=== PATIENT | male | born 1940 | race Two or more races ===

== ENCOUNTER 2023-04-27 10:13 | Emergency (ER) | payer MEDICARE, BC ==
[~2023-04-27] VITALS: Ht 167.6 cm; Wt 80.0 kg
[2023-04-27] MEDS ORDERED: SODIUM CHLORIDE 0.9% 1,000 ML IVB ONE (10:30)
[2023-04-27] MEDS ORDERED: MORPHINE SULFATE 4 MG/ML SYR/VIAL IV ONE ×2 (10:30→16:30)
[2023-04-27] MEDS ORDERED: ONDANSETRON HCL 4 MG/2 ML VIAL IV ONE ×2 (10:30→16:30)
[2023-04-27 11:00] VITALS: PULSE 74; RESP 14; O2SAT 95
[2023-04-27 11:10] LABS: Basophils # (auto) 0 10 ^3/uL (0-0.2); Eosinophils # (auto) 0.4 10 ^3/uL (0-0.8); Hemoglobin 12.8 g/dL (13.5-17.5); Mean Corpuscular Hemoglobin 25.1 pg (28.0-32.0); White Blood Cell 9.3 10^3/uL (4.4-10.8)
[2023-04-27 11:11] LABS: Basophils % (auto) 0.3 % (0.0-2.0); Eosinophils % (auto) 4.6 % (0.0-7.0); Hematocrit 39.1 % (41.0-53.0); Lymphocytes # (auto) 1.2 10 ^3/uL (0.4-5.4); Lymphocytes % (auto) 12.8 % (10.0-50.0); Mean Corpuscular Hgb Conc. 32.7 g/dL (32.0-36.0); Mean Corpuscular Volume 76.6 fL (80.0-100.0); Monocytes % (auto) 10.4 % (0.0-12.0); Neutrophils # (auto) 6.7 10 ^3/uL (1.6-8.6); Neutrophils % (auto) 71.9 % (37.0-80.0); Red Blood Cells 5.11 10^6/uL (4.5-5.90); Red Cell Distribution Width 18.5 % (11.8-14.3)
[2023-04-27 11:27] LABS: Alanine Aminotransferase 45 U/L (7-40); Albumin 4.3 g/dL (3.2-4.8); Alkaline Phosphatase 121 U/L (46-116); Anion Gap 3 (5-15); Aspartate Aminotransferase 90 U/L (13-40); BUN/Creatinine Ratio 11.6 (10.0-20.0); Blood Urea Nitrogen 14 mg/dL (9-23); Calcium 9.6 mg/dL (8.7-10.4); Carbon Dioxide 30 mmol/L (20-30); Chloride 103 mmol/L (98-107); Glucose 98 mg/dL (74-106); Lipase 37 U/L (12-53); Potassium 4.3 mmol/L (3.5-5.1); Sodium 136 mmol/L (136-145)
[2023-04-27 11:28] LABS: Bilirubin, Total 0.8 mg/dL (0.2-1.0); Total Protein 7.2 g/dL (5.7-8.2)
[2023-04-27] MEDS ORDERED: IOHEXOL 300 MG/ML 100ML BOTTLE IJ ONE (12:33)
[2023-04-27 15:21] LABS: Urine Bacteria NONE SEEN /hpf (None Seen); Urine Blood Negative /uL (Negative); Urine Clarity Clear (Clear); Urine Color Yellow (Yellow); Urine Protein, UAD Negative (Negative); Urine Urobilinogen Normal (Negative); Urine WBC 1 /hpf (0 - 3); Urine pH 7.5 (5.0-8.0)
[2023-04-27 19:30] VITALS: PULSE 78; RESP 16; O2SAT 96
[2023-04-28 00:32] VITALS: BP 128/69; PULSE 84; RESP 18; O2SAT 94
== END 2023-04-28 00:59 | disposition short-term general hospital (02) ==
LOC: ER 10:13 → EDBD 10:13 → ER 04-28 00:59
DX: K80.50 Calculus of bile duct without cholangitis or cholecystitis without obstruction (principal); K80.20 Calculus of gallbladder without cholecystitis without obstruction; Z85.9 Personal history of malignant neoplasm, unspecified; Z98.890 Other specified postprocedural states; Z88.8 Allergy status to other drugs, medicaments and biological substances
CPT/HCPCS: 36415; 74177; 76705; 80053; 81001; 83605; 83690; 85025; 93005; 96361; 96374; 96375; 96376; 99285; J2270; J2405; J7030; Q9967

== ENCOUNTER 2024-12-23 23:46 | Inpatient (IN) | payer MEDICARE, BC ==
[~2024-12-23] VITALS: Ht 167.6 cm; Wt 67.1 kg
[2024-12-24 00:09] LABS: Nucleated Red Blood Cells % 0.0 %
[2024-12-24 00:11] LABS: Hematocrit 38.3 % (41.0-53.0); Hemoglobin 12.7 g/dL (13.5-17.5); Mean Corpuscular Hemoglobin 27.0 pg (28.0-32.0); Mean Corpuscular Volume 81.6 fL (80.0-100.0)
[2024-12-24 00:12] LABS: Chloride 104 mmol/L (98-107); Potassium 3.6 mmol/L (3.5-5.1); Sodium 139 mmol/L (136-145)
[2024-12-24 00:13] LABS: Anion Gap 10 (5-15); Carbon Dioxide 25 mmol/L (20-31)
[2024-12-24 00:14] LABS: Calcium 8.9 mg/dL (8.7-10.4)
[2024-12-24 00:19] LABS: BUN/Creatinine Ratio 15.7 (10.0-20.0); Blood Urea Nitrogen 14 mg/dL (9-23)
[2024-12-24 00:20] LABS: Glucose 119 mg/dL (74-106)
--- NOTE | 2024-12-24 00:50 | ED.PDOC ---
History of Present Illness HPI Comments 84 y/o M is BIBA for c/o left sided back pain and decreased output from his colostomy bag for the past 5x days. Vitals stable and within normal limits. No recent trauma or injuries endorsed. No further acute associated symptoms reported. 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 Past Medical History PAST MEDICAL HISTORY: Cancer (intestinal ) Surgical History: CABG, Cholecystectomy, Pacemaker Surgical History (Other): colostomy in place Family History Family History: Reviewed,noncontributory to illness, No family hx of Cancer, No family hx of DM, No family hx of Heart lee, No family hx of HTN, No family hx ofKidney lee, No family hx of Liver lee, No family hx of Lung lee, No family hx of Stroke Social History Smoker: Non-Smoker Alcohol: Denies ETOH Use Drugs: Denies Drug Use Lives In: Home All Other Systems: Reviewed and Negative (Comprehensive systems review obtained and negative except for what is stated in the HPI.) Physical Exam General Appearance: No Apparent Distress, Normal HEENT: Normal ENT Inspection, Pharynx Normal, TMs Normal Neck: Full Range of Motion, Non-Tender, Normal, Normal Inspection Respiratory: Chest Non-Tender, Lungs Clear, No Accessory Muscle Use, No R espiratory Distress, Normal Breath Sounds Cardiovascular: No Edema, No JVD, No Murmur, No Gallop, Normal Peripheral Pulses, Regular Rate/Rhythm Breast Exam: Deferred Gastrointestinal: No Organomegaly, Non Tender, No Pulsatile Mass, Normal Bowel Sounds, Soft, Other (colostomy in place ) Genitalia: Deferred Pelvic: Deferred Rectal: Deferred Extremities: No calf tenderness, Normal capillary refill, Normal inspection, Normal range of motion, Non-tender, No pedal edema Musculoskeletal : Location: Left Extremity Location: Back Apperance: Normal, Tenderness Neurologic: Alert, telecom assistant II-XII nml as Tested, No Motor Deficits, Normal Affect, Normal Mood, No Sensory Deficits Cerebellar Function: Normal Reflexes: Normal Skin: Dry, Normal Color, Warm Lymphatic: No Adenopathy Was a procedure done? Was a procedure done?: No EKG EKG : Pulse Rate (adult): 94 [place]: Normal Cardiac Rhythm: Afib Block: None Hypertrophy: None ST: Normal Differential Dx Considerations may include: chronic back pain syndrome, musculoskeletal pain, strain, sciatica, bowel obstruction, among others X-Ray, Labs, Meds, VS Vital Signs Date Time Temp Pulse Resp B/P (MAP) Pulse Ox O2 Delivery O2 Flow Rate FiO2 12/24/24 02:59 90 12/24/24 01:14 100 16 99 Room Air* 0 21 12/24/24 01:10 94 12/24/24 00:54 92 12/24/24 00:47 98.1 100 16 124/78 (93) 99 98.1 12/24/24 00:00 98.1 100 16 124/78 (93) 99 98.1 12/24/24 00:00 94 Lab Test 12/24/24 02:43 12/24/24 01:40 12/24/24 00:45 12/23/24 23:57 Range/Units Troponin I High Sensitivity Pending 6 5 </=54 ng/L Urine Color Yellow Yellow Urine Clarity Clear Clear Urine pH 6.0 5.0-9.0 Urine Specific [place] 1.026 1.001-1.035 Urine Protein Trace H Negative Urine Ketones Negative Negative Urine Blood Negative Negative /uL Urine Nitrite Negative Negative Urine Bilirubin Negative Negative Urine Urobilinogen 3 H Negative mg/dL Urine Leukocyte Esterase Negative Negative /uL Urine RBC 2 0 - 3 /hpf Urine Microscopic WBC 6 H 0-3 /HPF Urine Squamous Epithelial Cells Few <5 /hpf Urine Bacteria None seen None Seen /hpf Urine Glucose Normal Normal mg/dL White Blood Count 9.0 4.4-10.8 10^3/uL Red Blood Count 4.70 4.5-5.90 10^6/uL Hemoglobin 12.7 L 13.5-17.5 g/dL Hematocrit 38.3 L 41.0-53.0 % Mean Corpuscular Volume 81.6 80.0-100.0 fL Mean Corpuscular Hemoglobin 27.0 L 28.0-32.0 pg Mean Corpuscular Hemoglobin Concent 33.1 32.0-36.0 g/dL Red Cell Distribution Width 15.4 H 11.8-14.3 % Platelet Count 294 140-450 10^3/uL Mean Platelet Volume 6.9 6.9-10.8 fL Neutrophils (%) (Auto) 79.0 37.0-80.0 % Lymphocytes (%) (Auto) 8.4 L 10.0-50.0 % Monocytes (%) (Auto) 9.5 0.0-12.0 % Eosinophils (%) (Auto) 2.6 0.0-7.0 % Basophils (%) (Auto) 0.5 0.0-2.0 % Neutrophils # (Auto) 7.1 1.6-8.6 10 ^3/uL Lymphocytes # (Auto) 0.8 0.4-5.4 10 ^3/uL Monocytes # (Auto) 0.9 0-1.3 10 ^3/uL Eosinophils # (Auto) 0.2 0-0.8 10 ^3/uL Basophils # (Auto) 0 0-0.2 10 ^3/uL Nucleated Red Blood Cells 0.0 % Sodium Level 139 136-145 mmol/L Potassium Level 3.6 3.5-5.1 mmol/L Chloride Level 104 98-107 mmol/L Carbon Dioxide Level 25 20-31 mmol/L Anion Gap 10 5-15 Blood Urea Nitrogen 14 9-23 mg/dL Creatinine 0.89 0.700-1.30 mg/dL Glomerular Filtration Rate Calc 85 >90 mL/min BUN/Creatinine Ratio 15.7 10.0-20.0 Serum Glucose 119 H 74-106 mg/dL Calcium Level 8.9 8.7-10.4 mg/dL Time of 1ST Reevaluation: 00:10 Reevaluation 1ST: Unchanged Patient Education/Counseling: Diagnosis, Treatment Family Education/Counseling: No Family Present Additional Information Previous visits reviewed: April 27, 2023 for cholelithiasis The following tests were ordered, and results were reviewed by me: CT abdomen/pelvis w/IV contrast, EKG, troponin, UA, CBC, BMP, CXR Additional Information was gathered from interviewing the following independent historians: EMS I reviewed and agreed with the following test results read by other providers: CT abdomen/pelvis w/IV contrast I discussed treatment and results with medical personnel and: patient SEPSIS Sepsis Screen Physician Orders Chest Portable (12/23/24 23:52) Ct Ab Pel With Iv Con Only (12/23/24 23:52) Troponin-I Hs (12/24/24 02:48) Electrocardigram (12/24/24 00:08) Electrocardigram (12/24/24 01:08) Electrocardigram (12/24/24 03:08) Vital Signs Date Time Temp Pulse Resp B/P (MAP) Pulse Ox O2 Delivery O2 Flow Rate FiO2 12/24/24 02:59 90 12/24/24 01:14 100 16 99 Room Air* 0 21 12/24/24 01:10 94 12/24/24 00:54 92 12/24/24 00:47 98.1 100 16 124/78 (93) 99 98.1 12/24/24 00:00 98.1 100 16 124/78 (93) 99 98.1 12/24/24 00:00 94 Laboratory Tests Test 12/23/24 23:57 White Blood Count 9.0 10^3/uL (4.4-10.8) Departure 1 Departure Time of Disposition: 03:32 (Patient with a worsening pain. We will admit patient for further workup and expert consultation) Impression: Primary Impression: Left-sided chest pain Additional Impressions: Left flank pain History of creation of ostomy Disposition: ADMITTED INPATIENT Admit to: Med Surg Condition: Serious Critical Care Note Critical Care Time?: Yes Critical care comment: Intractable pain Authorized and Performed by: Zaynab Gallagher MD Total critical care time: Approximately 39 minutes Due to a high probability of clinically significant, life threatening deterioration, the patient required my highest level of preparedness to intervene emergently and I personally spent this critical care time directly and personally managing the patient. This critical care time included obtaining a history; examining the patient; pulse oximetry; ordering and review of studies; arranging urgent treatment with development of a management plan; evaluation of patient's response to treatment; frequent reassessment; and, discussions with other providers. This critical care time was performed to assess and manage the high probability of imminent, life-threatening deterioration that could result in multi-organ failure. It was exclusive of separately billable procedures and treating other patients and teaching time. Please see my other sections and the rest of the note for further information on patient assessment and treatment. Stability Stability form required: No Heart Score Heart Score: Heart Score Response (Comments) Value History N/A 0 EKG N/A 0 Age N/A 0 Risk Factors N/A 0 Troponin N/A 0 Total 0 I personally scribed for ZAYNAB GALLAGHER MD ([email or web address]) on 12/24/24 at 00:50. Electronically submitted by Robert Thomas ([email or web address]). I personally scribed for ZAYNAB GALLAGHER MD ([email or web address]) on 12/24/24 at 01:10. Electronically submitted by Robert Thomas ([email or web address]). I personally scribed for ZAYNAB GALLAGHER MD ([email or web address]) on 12/24/24 at 01:17. Electronically submitted by Robert Thomas ([email or web address]). ZAYNAB GALLAGHER MD Dec 24, 2024 00:50
[2024-12-24 01:14] VITALS: PULSE 100; RESP 16; O2SAT 99
[2024-12-24] MEDS: IOHEXOL 300 MG/ML 100ML BOTTLE IJ ONE (01:48)
[2024-12-24 01:55] LABS: Urine Protein, UAD TRACE (Negative)
--- NOTE | 2024-12-24 02:01 | DVH ---
CHEST RADIOGRAPH Indication: abdominal pain Technique: Single frontal view of the chest was obtained COMPARISON: None FINDINGS: The patient is moderately rotated to the left. Lines and Tubes: None. Left anterior chest wall cardiac pacing device. Lungs: The left lung is poorly evaluated secondary to clipping of the costophrenic angle and patient' s rotation. The right lung is clear. Pleura: No definite effusion. No definite pneumothorax. Cardiomediastinal contours: Cardiomegaly status post median sternotomy. Bones: Unremarkable IMPRESSION: 1. Limited exam secondary to patient positioning and clipping of the left costophrenic angle. The lef t lung is poorly evaluated. The right lung is clear. 2. Cardiomegaly.
--- NOTE | 2024-12-24 03:04 | DVH ---
Exam: CT CT AB PEL WITH IV CON ONLY History: abdominal pain, ostomy COMPARISON: CT CT AB PEL WITH IV CON ONLY on DOS: 04/27/23 Technique: Multidetector spiral CT of the abdomen and pelvis was performed from lung bases to pubic s ymphysis. Intravenous contrast was administered during this examination. Portal venous imaging was o btained. Axial, coronal and sagittal multiplanar reformats were performed by the technologist on a [employer] workstation. Radiation Dose : 1. Abdomen/Pelvis: CTDIvol 11.52mGy, DLP 590.84 mGy*cm. CONTRAST: Type of contrast: Omniscan 300 Contrast injected: 80 ml Findings: Lung Bases: No acute or significant lung base finding. 4 mm odule posterior right lung base (series 2 , image 9). Normal heart size. No pleural or pericardial effusion. Proximal aortic stent and cardiac pacing leads status post median sternotomy. Liver: The liver is normal in size. No focal lesions. Normal hepatic vascular enhancement. Gallbladder and Biliary Tree: Cholelithiasis. Spleen: Unremarkable Pancreas: The pancreas is normal in appearance without focal lesions or abnormal enhancement. Adrenal Glands: Unremarkable Kidneys: No hydronephrosis. Bladder: Unremarkable Bowel: Small hiatal hernia. The stomach is grossly normal in appearance. Retained colonic stool. Smal l bowel and colon are otherwise normal in caliber and distribution. Left lower quadrant colostomy. Lo w rectal bowel sutures. The appendix is normal. Ascites: Absent Lymphadenopathy: No mesenteric, retroperitoneal or periportal lymphadenopathy. Abdominal Wall and Mesentery: Unremarkable. Vasculature: The visualized abdominal aorta is moderately tortuous in its course and otherwise normal in size and caliber. Atherosclerotic vascular calcifications. Abdominal and pelvic vessels demonstr ate normal enhancement. Pelvic Organs: Unremarkable Musculoskeletal: No aggressive focal bony lesions, acute fractures or dislocation. IMPRESSION: 1. No acute abdominal or pelvic finding. 2. Right posterior basilar pulmonary nodule. 3. Cholelithiasis. 4. Postsurgical change status post hemicolectomy with left lower quadrant colostomy. Radiation optimization: All CT scans at this facility use at least one of these dose optimization david hniques: automated exposure control mA and/or kV adjustment per patient size (includes targeted exam s where dose is matched to clinical indication) or iterative reconstruction.
[2024-12-24] MEDS: SODIUM CHLORIDE 0.9% 1,000 ML IV ONE (03:45)
[2024-12-24] MEDS: MORPHINE SULFATE 4 MG/ML SYR/VIAL IV ONE (04:10)
[2024-12-24] MEDS: ONDANSETRON HCL 4 MG/2 ML VIAL IV ONE (04:10)
--- NOTE | 2024-12-24 06:14 | ECG ---
[facility] Test Date: 2024-12-24 Test Time: 00:00:58 Pat Name: SHITAL LYNN Department: ED Room: 0296 Gender: M [employer]sc[employer] Director: edson : 1940 Requested By: ZAYNAB ELDRIDGE Order Number: [id number] [place] MD: Cm Alcantara Measurements Intervals [place] Rate: 94 P: 0 CO: 0 QRS: 35 QRSD: 162 T: 254 QT: 396 QTc: 496 Interpretive Statements Atrial fibrillation IVCD, consider atypical RBBB LVH with secondary repolarization abnormality ST depr, consider ischemia, inferior leads Borderline prolonged QT interval Baseline wander in lead(s) V6 Electronically Signed On 12-26-2024 9:51:57 PDT by Cm Alcantara Please click the below link to view image of tracing.
--- NOTE | 2024-12-24 06:15 | ECG ---
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
[2024-12-24] MEDS ORDERED: ACETAMINOPHEN 325 MG TAB PO PRN (07:00)
[2024-12-24] MEDS ORDERED: NITROGLYCERIN 0.4 MG SL TAB SL PRN (07:00)
[2024-12-24] MEDS ORDERED: HYDROcodone-ACET 5/325MG TAB PO PRN (07:00)
[2024-12-24] MEDS ORDERED: ATOR20TA50 PO (07:30)
[2024-12-24] MEDS ORDERED: METO-289 PO (07:30)
[2024-12-24] MEDS ORDERED: [UNRECOGNIZED DRUG - CODE] PO (07:30)
[2024-12-24] MEDS ORDERED: APIX5TAB PO (07:30)
[2024-12-24] MEDS ORDERED: AMLO1TAB23 PO (07:30)
--- NOTE | 2024-12-24 07:32 | DVHHP2 ---
History of Present Illness Reason for Visit: Back pain History of Present Illness Aníbal Saeed is an 84-year-old male with past medical history of hypertension, colon cancer, hemicolectomy status post colostomy, arthritis, pacemaker, stents x7, left nephrectomy in 2010, CABG, and cholecystectomy who presents to the ED with back pain x2 days. Patient states he is hard of hearing and does not currently have his hearing aids on. Patient states that he currently lives up here in [place] alone but does go down to [place] to visit his from time to time to help her. Patient reports that he walks and runs. He denies any recent trauma or injury, recent sick contacts, recent ingestion of spoiled food, fever, chills, lightheadedness, weakness, dizziness, abdominal pain, nausea, vomiting, diarrhea, chest pain, or shortness for breath. Patient states that he is aware of a pulmonary nodule in his right lung. He states that he got tested late last year in 2023 and results came back negative per his primary. Cardiovascular: HTN Past Medical History Arthritis Colon cancer Past Surgical History: Other (Left nephrectomy, colostomy status post hemicolectomy, pacemaker, stents x7, and CABG) Family History: DM, Hypertension, Other (Mom with diabetes and hypertension. Dad with hypertension.) Smoke: No ALCOHOL: none Drugs: None Lives: Alone Domestic Violence: Neg Review of Systems Musculoskeletal: back pain Allergies: Coded Allergies: Acetaminophen (Verified Allergy, Unknown, 04/27/23) Exam Vital Signs Vital Signs Date Time Temp Pulse Resp B/P (MAP) Pulse Ox O2 Delivery O2 Flow Rate FiO2 12/24/24 05:00 92 21 145/75 (98) 96 12/24/24 01:14 Room Air* 0 21 12/24/24 00:47 98.1 98.1 General Appearance: Alert, Oriented X3, Cooperative, No acute distress HEENT: Atraumatic, PERRLA, EOMI, Mucous membr. moist/pink Respiratory: Clear to auscultation, Normal air movement Cardiovascular: Regular rate, Normal S1, Normal S2 Abdominal: Normal bowel sounds, Soft Extremities: No cyanosis, Normal pulses Neuro: Normal speech, Strength at 5/5 X4 ext, Normal tone, Sensation intact Psych/Mental Status: Mental status NL, Mood NL Labs/Xrays Labs Test 12/24/24 02:43 12/24/24 01:40 12/23/24 23:57 Range/Units Troponin I High Sensitivity 5 </=54 ng/L Urine Color Yellow Yellow Urine Clarity Clear Clear Urine pH 6.0 5.0-9.0 Urine Specific [place] 1.026 1.001-1.035 Urine Protein Trace H Negative Urine Ketones Negative Negative Urine Blood Negative Negative /uL Urine Nitrite Negative Negative Urine Bilirubin Negative Negative Urine Urobilinogen 3 H Negative mg/dL Urine Leukocyte Esterase Negative Negative /uL Urine RBC 2 0 - 3 /hpf Urine Microscopic WBC 6 H 0-3 /HPF Urine Squamous Epithelial Cells Few <5 /hpf Urine Bacteria None seen None Seen /hpf Urine Glucose Normal Normal mg/dL White Blood Count 9.0 4.4-10.8 10^3/uL Red Blood Count 4.70 4.5-5.90 10^6/uL Hemoglobin 12.7 L 13.5-17.5 g/dL Hematocrit 38.3 L 41.0-53.0 % Mean Corpuscular Volume 81.6 80.0-100.0 fL Mean Corpuscular Hemoglobin 27.0 L 28.0-32.0 pg Mean Corpuscular Hemoglobin Concent 33.1 32.0-36.0 g/dL Red Cell Distribution Width 15.4 H 11.8-14.3 % Platelet Count 294 140-450 10^3/uL Mean Platelet Volume 6.9 6.9-10.8 fL Neutrophils (%) (Auto) 79.0 37.0-80.0 % Lymphocytes (%) (Auto) 8.4 L 10.0-50.0 % Monocytes (%) (Auto) 9.5 0.0-12.0 % Eosinophils (%) (Auto) 2.6 0.0-7.0 % Basophils (%) (Auto) 0.5 0.0-2.0 % Neutrophils # (Auto) 7.1 1.6-8.6 10 ^3/uL Lymphocytes # (Auto) 0.8 0.4-5.4 10 ^3/uL Monocytes # (Auto) 0.9 0-1.3 10 ^3/uL Eosinophils # (Auto) 0.2 0-0.8 10 ^3/uL Basophils # (Auto) 0 0-0.2 10 ^3/uL Nucleated Red Blood Cells 0.0 % Sodium Level 139 136-145 mmol/L Potassium Level 3.6 3.5-5.1 mmol/L Chloride Level 104 98-107 mmol/L Carbon Dioxide Level 25 20-31 mmol/L Anion Gap 10 5-15 Blood Urea Nitrogen 14 9-23 mg/dL Creatinine 0.89 0.700-1.30 mg/dL Glomerular Filtration Rate Calc 85 >90 mL/min BUN/Creatinine Ratio 15.7 10.0-20.0 Serum Glucose 119 H 74-106 mg/dL Calcium Level 8.9 8.7-10.4 mg/dL INDICATION: Low back pain COMPARISON: None TECHNIQUE: 3 views of the lumbar spine were obtained. FINDINGS: The lumbar vertebral alignment is normal. Multilevel intervertebral disc space narrowing. Facet arthropathy at L4-L5 and L5-S1. Anterior wedge compression deformities of T12 and L1 of indeterminate age. There is lucency in the anterior and inferior aspect of the S1 vertebral body. The paravertebral soft tissues are grossly unremarkable. Excreted contrast in the urinary bladder. IMPRESSION: 1. Lucency in the anterior and inferior aspect of the S1 vertebral body. Fracture is not excluded. 2. Age-indeterminate T12 and L1 compression deformities. 3. Multilevel lumbar spondylosis. Assessment/Plan Assessment/Plan Assessment Intractable back pain rule out fracture T12 and a L1 compression deformities Multilevel lumbar spondylosis Right posterior basilar pulmonary nodule Cardiomegaly History of hypertension Hx of colon cancer Hx of hemicolectomy status post colostomy Hx of arthritis Hx of pacemaker Hx of stents x7 Hx of left nephrectomy in 2010 Hx of CABG Hx of cholecystectomy Plan Admit to med surge Antiemetics Pain management UA NS 1 L given ED EKG Troponin negative x3 CT abdomen and pelvis Chest x-ray X-ray lumbar spine Possible CT myelogram unable to get MR L/S due to PM - need to check compatibility Diet DVT prophylaxis-patient on Eliquis PUD prophylaxis-PPIs Discussed plan of care with patient and nurse Spinal consult Advanced care planning discussion regarding length of stay and consult required Preventive counseling discussed with patient on physical activity, regular checkups, vaccines, and healthy eating habits Plan discussed with: Patient My Orders Orders - MAXIMILIAN JEAN BAPTISTE TECHNICAL STAFF ASSISTANT Procedure Category Date Status Time Lumbar Spine 3 View XY 12/24/24 Logged 06:57 Admit ADMIT 12/24/24 Transmitted 06:57 Allergies KENDAL 12/24/24 Transmitted 06:57 Code Status CODE 12/24/24 Transmitted 06:57 Hydrocodone-Acet PHA 12/24/24 Transmitted 5/325mg Tab ([place] 07:00 Ondansetron Hcl PHA 12/24/24 Transmitted (Zofran) 07:00 Enoxaparin Sodium PHA 12/24/24 Transmitted (Lovenox) 10:00 Complete Blood Count LAB 12/25/24 Verified 04:00 Comprehensive LAB 12/25/24 Verified Metabolic Panel 04:00 Cardiac DIET 12/24/24 Transmitted Diet-2gna,Lofat,Lochol Breakfast Acetaminophen Tablet PHA 12/24/24 Transmitted (Tylenol Tablet) 07:00 Nitroglycerin PHA 12/24/24 Transmitted Sublingual (Ntrostat 07:00 Morphine Sulfate PHA 12/24/24 Transmitted Injection 07:00 Stat Ekg For Chest [facility] 12/24/24 Transmitted Pain 06:57 Notify Md Of Changes [facility] 12/24/24 Transmitted From Base 06:57 Outreach Representative For [facility] 12/24/24 Transmitted 24 Hours 06:57 Emergency Dysrhythmia [facility] 12/24/24 Transmitted Protocol 06:57 Rhythm Strips Once [facility] 12/24/24 Transmitted Every Shift 06:57 Oxygen By Nasal RT 12/24/24 Transmitted Cannula 06:57 Apixaban (Eliquis) [facility] 12/24/24 Verified 10:00 Atorvastatin (Lipitor) PHA 12/24/24 Verified 10:00 Metoprolol Xl PHA 12/24/24 Verified Succinate (Toprol Xl) 10:00 (Nf) Amlodipine PHA 12/24/24 Verified Besylate 10:00 (Nf) Venlafaxine PHA 12/24/24 Verified Hydrochloride 10:00 Date of Service: Dec 24, 2024 Billing Provider: MAXIMILIAN JEAN BAPTISTE Common Visit Codes: 22363-WPMUUHQ INP/OBS CARE (HIGH) Secondary Visit Codes: 63095-[id number] COUNSELING IND, [id number]-[id number] CARE PLAN 30 MINUTES MAXIMILIAN JEAN BAPTISTE Dec 24, 2024 07:32
[2024-12-24 08:00] VITALS: PULSE 82; RESP 20; O2SAT 97
--- NOTE | 2024-12-24 08:23 | DVH ---
INDICATION: Low back pain COMPARISON: None TECHNIQUE: 3 views of the lumbar spine were obtained. FINDINGS: The lumbar vertebral alignment is normal. Multilevel intervertebral disc space narrowing. Facet arthropathy at L4-L5 and L5-S1. Anterior wedge compression deformities of T12 and L1 of indeterminate age. There is lucency in the an terior and inferior aspect of the S1 vertebral body. The paravertebral soft tissues are grossly unremarkable. Excreted contrast in the urinary bladder. IMPRESSION: 1. Lucency in the anterior and inferior aspect of the S1 vertebral body. Fracture is not excluded. 2. Age-indeterminate T12 and L1 compression deformities. 3. Multilevel lumbar spondylosis.
--- NOTE | 2024-12-24 08:29 | ECG ---
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
--- NOTE | 2024-12-24 09:56 | DVHINCON2 ---
Consultation - Spinal Surgery Date Seen: Dec 24, 2024 Referring Physician Referring Physician Attending Doctor: Jessica Love [facility] Reason for Consultation Reason for Visit: Back pain History of Present Illness History of Present Illness History of Present Illness Aníbal Saeed is an 84-year-old male with past medical history of hypertension, colon cancer, hemicolectomy status post colostomy, arthritis, pacemaker, stents x7, left nephrectomy in 2010, CABG, and cholecystectomy who presents to the ED with back pain x2 days. Patient states he is hard of hearing and does not curr ently have his hearing aids on. Patient states that he currently lives up here in [place] alone but does go down to [place] to visit his from time to time to help her. Patient reports that he walks and runs. He denies any recent trauma or injury, recent sick contacts, recent ingestion of spoiled food, fever, chills, lightheadedness, weakness, dizziness, abdominal pain, nausea, vomiting, diarrhea, chest pain, or shortness for breath. Patient states that he is aware of a pulmonary nodule in his right lung. He states that he got tested late last year in 2023 and results came back negative per his primary. Past Medical/Surgical History Past Medical/Surgical History Cardiovascular: HTN Past Medical History Arthritis Colon cancer Past Surgical History: Other (Left nephrectomy, colostomy status post hemicolectomy, pacemaker, stents x7, and CABG) Family and Social History Family and Social History Family History: DM, Hypertension, Other (Mom with diabetes and hypertension. Dad with hypertension.) Smoke: No ALCOHOL: none Drugs: None Lives: Alone Domestic Violence: Neg Allergies and medications Allergies: Coded Allergies: Acetaminophen (Verified Allergy, Unknown, 04/27/23) Home Meds Reported Medications Atorvastatin Calcium (ATORVASTATIN CALCIUM) 20 Mg Tab, 1 TAB PO DAILY 12/24/24 Apixaban Base (ELIQUIS) 5 Mg Tab, 1 TAB PO BID 12/24/24 Venlafaxine Hydrochloride (Venlafaxine Hydrochloride) 75 Mg Tab, 1 TAB PO DAILY 12/24/24 Metoprolol Succinate (Metoprolol Succinate Er) 50 Mg Tab, 1 TAB PO DAILY 12/24/24 Amlodipine Besylate (Amlodipine Besylate) 10 Mg Tab, 1 TAB PO DAILY 12/24/24 Review of systems Review of Systems: HEENT:Normal, CVS:Abnormal, :Abnormal Examination Vital signs Imaging INDICATION: Low back pain COMPARISON: None TECHNIQUE: 3 views of the lumbar spine were obtained. FINDINGS: The lumbar vertebral alignment is normal. Multilevel intervertebral disc space narrowing. Facet arthropathy at L4-L5 and L5-S1. Anterior wedge compression deformities of T12 and L1 of indeterminate age. There is lucency in the anterior and inferior aspect of the S1 vertebral body. The paravertebral soft tissues are grossly unremarkable. Excreted contrast in the urinary bladder. IMPRESSION: 1. Lucency in the anterior and inferior aspect of the S1 vertebral body. Fracture is not excluded. 2. Age-indeterminate T12 and L1 compression deformities. 3. Multilevel lumbar spondylosis. Vital Signs Date Time Temp Pulse Resp B/P (MAP) Pulse Ox O2 Delivery O2 Flow Rate FiO2 12/24/24 08:00 82 20 97 Room Air* 0 21 12/24/24 08:00 98.2 133/70 (91) 98.2 Medications Current Medications Medications (Trade) Dose Ordered Sig/Enrique Route PRN Reason Start Time Stop Time Status Last Admin Acetaminophen/ Hydrocodone Bitart ([place] 5/325MG Tab) 1 tab Q4HP PRN PO MODERATE PAIN (4-6 PAIN SCALE) 12/24/24 07:00 Hold Ondansetron HCl (Zofran) 4 mg Q4HP PRN IV NAUSEA / VOMITING 12/24/24 07:00 Enoxaparin Sodium (Lovenox) 40 mg DAILY SC 12/24/24 10:00 12/24/24 08:00 DC Acetaminophen (Tylenol Tablet) 650 mg Q6HP PRN PO PAIN SCALE 1-3 OR TEMP>100.4 12/24/24 07:00 Nitroglycerin (Ntrostat Sublingual) 0.4 mg Q5MINP PRN SL FOR CHEST PAIN 12/24/24 07:00 Morphine Sulfate 2 mg Q30M PRN IV FOR CHEST PAIN 12/24/24 07:00 Apixaban (Eliquis) 5 mg BID PO 12/24/24 10:00 Atorvastatin Calcium (Lipitor) 20 mg DAILY PO 12/24/24 10:00 Metoprolol Succinate (Toprol Xl) 50 mg DAILY PO 12/24/24 10:00 Amlodipine Besylate (Norvasc Tablet) 10 mg DAILY PO 12/24/24 10:00 Venlafaxine HCl (Effexor) 75 mg DAILY PO 12/24/24 10:00 Laboratory Labs Test 12/24/24 02:43 12/24/24 01:40 12/23/24 23:57 Range/Units Troponin I High Sensitivity 5 </=54 ng/L Urine Color Yellow Yellow Urine Clarity Clear Clear Urine pH 6.0 5.0-9.0 Urine Specific [place] 1.026 1.001-1.035 Urine Protein Trace H Negative Urine Ketones Negative Negative Urine Blood Negative Negative /uL Urine Nitrite Negative Negative Urine Bilirubin Negative Negative Urine Urobilinogen 3 H Negative mg/dL Urine Leukocyte Esterase Negative Negative /uL Urine RBC 2 0 - 3 /hpf Urine Microscopic WBC 6 H 0-3 /HPF Urine Squamous Epithelial Cells Few <5 /hpf Urine Bacteria None seen None Seen /hpf Urine Glucose Normal Normal mg/dL White Blood Count 9.0 4.4-10.8 10^3/uL Red Blood Count 4.70 4.5-5.90 10^6/uL Hemoglobin 12.7 L 13.5-17.5 g/dL Hematocrit 38.3 L 41.0-53.0 % Mean Corpuscular Volume 81.6 80.0-100.0 fL Mean Corpuscular Hemoglobin 27.0 L 28.0-32.0 pg Mean Corpuscular Hemoglobin Concent 33.1 32.0-36.0 g/dL Red Cell Distribution Width 15.4 H 11.8-14.3 % Platelet Count 294 140-450 10^3/uL Mean Platelet Volume 6.9 6.9-10.8 fL Neutrophils (%) (Auto) 79.0 37.0-80.0 % Lymphocytes (%) (Auto) 8.4 L 10.0-50.0 % Monocytes (%) (Auto) 9.5 0.0-12.0 % Eosinophils (%) (Auto) 2.6 0.0-7.0 % Basophils (%) (Auto) 0.5 0.0-2.0 % Neutrophils # (Auto) 7.1 1.6-8.6 10 ^3/uL Lymphocytes # (Auto) 0.8 0.4-5.4 10 ^3/uL Monocytes # (Auto) 0.9 0-1.3 10 ^3/uL Eosinophils # (Auto) 0.2 0-0.8 10 ^3/uL Basophils # (Auto) 0 0-0.2 10 ^3/uL Nucleated Red Blood Cells 0.0 % Sodium Level 139 136-145 mmol/L Potassium Level 3.6 3.5-5.1 mmol/L Chloride Level 104 98-107 mmol/L Carbon Dioxide Level 25 20-31 mmol/L Anion Gap 10 5-15 Blood Urea Nitrogen 14 9-23 mg/dL Creatinine 0.89 0.700-1.30 mg/dL Glomerular Filtration Rate Calc 85 >90 mL/min BUN/Creatinine Ratio 15.7 10.0-20.0 Serum Glucose 119 H 74-106 mg/dL Calcium Level 8.9 8.7-10.4 mg/dL Examination: GENERAL:Normal, HEENT:Normal, NECK:Normal, LUNGS:Normal, CVS:No rmal, ABDOMEN:Normal, MSK:Normal (4/5 to all extremities age-appropriate range of motion), SKIN:Normal, NEURO:Abnormal (Left low back pain, patient states that he had well controlled pain when he was taking his tramadol however his insurance no longer covers it. 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 Fracture is not excluded. Age-indeterminate T12 and L1 compression deformities. Multilevel lumbar spondylosis. Patient was fully functional when he had a prescription of tramadol however his insurance no longer pace for per the patient Rim Technician is attempting to find a substitute however has been unsuccessful at this time Further care and management per admitting/ED team's discretion Patient is not a surgical candidate at this time due to his poor bone quality Recommend a trial of Flexeril 10 mg q 8 hours p.o. for muscle spasms Once pain is under control there is no barriers to a safe discharge PT evaluate patient for recommendations treatment and discharge Call with questions Elsa Mckeon [facility] Orthopaedic Spine Surgery nurse practitioner For Dr Frank Anaya Patient was examined, chart reviewed, labs evaluated, and diagnostic studies and findings analyzed. Case was discussed with Dr. Albert Anaya who formulated the plan of care. This medical document was created using an electronic medical record system with [employer] dictation system. Although this document has been carefully reviewed, there might still be some phonetic and typographical errors. These areas are purely typographical due to imperfections of the software programs, and do not reflect any compromise in the patient's medical care. Plan discussed with Plan discussed with: Patient, Other (Jessica Lovep) JESSICA MCKEON NP Dec 24, 2024 09:56
[2024-12-24] MEDS ORDERED: ENOXAPARIN SOD 40 MG/0.4 ML SYRINGE SC SCH (10:00)
[2024-12-24] MEDS: ONDANSETRON HCL 4 MG/2 ML VIAL IV PRN (10:02)
[2024-12-24] MEDS: MORPHINE SULFATE INJ 2 MG/ml SYRG IV PRN (10:04)
[2024-12-24] MEDS: APIXABAN 5 MG TAB PO SCH (10:09)
[2024-12-24] MEDS: ATORVASTATIN 20 MG TAB PO SCH (10:10)
[2024-12-24] MEDS: METOPROLOL SUCCINATE XL 50 MG TAB PO SCH (10:10)
[2024-12-24] MEDS: VENLAFAXINE HCL 37.5MG TABLET PO SCH (10:12)
[2024-12-24] MEDS: CYCLOBENZAPRINE HCL 10 MG TAB PO SCH (14:00)
[2024-12-24 15:30] VITALS: BP 123/62; PULSE 81; RESP 16; TEMP 97.8; O2SAT 98
[2024-12-24 15:32] VITALS: BP 129/64; PULSE 78; RESP 18; TEMP 97.6; O2SAT 100
[2024-12-24 16:50] VITALS: BP 126/64; PULSE 78; RESP 16; TEMP 97.6; O2SAT 100
[2024-12-24 21:00] VITALS: BP 143/74; PULSE 78; RESP 15; TEMP 97.9; O2SAT 98
[2024-12-25 01:00] VITALS: BP 147/77; PULSE 86; RESP 15; TEMP 97.9; O2SAT 99
[2024-12-25 05:00] VITALS: BP 142/75; PULSE 79; RESP 15; TEMP 98.2; O2SAT 96
[2024-12-25 07:10] LABS: Hematocrit 38.9 % (41.0-53.0); Hemoglobin 12.9 g/dL (13.5-17.5); Mean Corpuscular Hemoglobin 27.1 pg (28.0-32.0); Mean Corpuscular Volume 82.0 fL (80.0-100.0); Nucleated Red Blood Cells % 0.0 %
[2024-12-25 07:22] LABS: Alanine Aminotransferase 10 U/L (7-40); Albumin 4.0 g/dL (3.2-4.8); Alkaline Phosphatase 108 U/L (46-116); Anion Gap 9 (5-15); BUN/Creatinine Ratio 10.5 (10.0-20.0); Bilirubin, Total 0.4 mg/dL (0.2-1.0); Calcium 9.6 mg/dL (8.7-10.4); Carbon Dioxide 24 mmol/L (20-31); Chloride 103 mmol/L (98-107); Glucose 90 mg/dL (74-106); Potassium 4.1 mmol/L (3.5-5.1); Sodium 136 mmol/L (136-145); Total Protein 7.7 g/dL (5.7-8.2)
[2024-12-25 07:24] LABS: Blood Urea Nitrogen 8 mg/dL (9-23)
[2024-12-25 08:00] VITALS: PULSE 80; RESP 16; O2SAT 98
[2024-12-25 09:00] VITALS: BP 157/76; PULSE 80; RESP 16; TEMP 97.8; O2SAT 98
[2024-12-25 13:00] VITALS: BP 112/72; PULSE 90; RESP 18; TEMP 98; O2SAT 97
--- NOTE | 2024-12-25 15:22 | DVHPN2 ---
Subjective Patient continues to report having lower back pain Reviewed: Care Plan, H&P, Labs, Medications Changes from previous H/P or p: No Changes General: Per HPI Musculoskeletal: back pain Objective Vitals Vital Signs Date Time Temp Pulse Resp B/P (MAP) Pulse Ox O2 Delivery O2 Flow Rate FiO2 12/25/24 13:00 98.0 90 18 112/72 (85) 97 98.0 12/25/24 08:00 Room Air* 0 21 Intake/Output Intake and Output 12/25/24 07:00 Intake Total 150 ml Output Total 400 ml Balance -250 ml Intake Oral 150 ml Output Urine Total 350 ml Stool Total 50 ml # Voids 2 General Appearance: Alert, Oriented X3, Cooperative, mild distress HEENT: Atraumatic, PERRLA Cardiovascular: Normal S1, Normal S2 Abdomen: Normal bowel sounds, Soft, No tenderness Musculoskeletal: Normal sensory function, Normal motor function Skin: Dry, Intact Psych/Mental Status: Mental status NL, Mood NL Medications Current Medications Medications Dose Ordered Sig/Enrique Route Start Time Stop Time Status Last Admin Dose Admin Acetaminophen/ Hydrocodone Bitart 1 tab Q4HP PRN PO 12/24/24 07:00 Cancel Ondansetron HCl 4 mg Q4HP PRN IV 12/24/24 07:00 12/24/24 10:02 4 MG Acetaminophen 650 mg Q6HP PRN PO 12/24/24 07:00 Cancel Nitroglycerin 0.4 mg Q5MINP PRN SL 12/24/24 07:00 Morphine Sulfate 2 mg Q30M PRN IV 12/24/24 07:00 12/24/24 10:04 2 MG Apixaban 5 mg BID PO 12/24/24 10:00 12/25/24 09:50 5 MG Atorvastatin Calcium 20 mg DAILY PO 12/24/24 10:00 12/25/24 09:50 20 MG Metoprolol Succinate 50 mg DAILY PO 12/24/24 10:00 12/25/24 09:47 50 MG Amlodipine Besylate 10 mg DAILY PO 12/24/24 10:00 12/25/24 09:49 10 MG Venlafaxine HCl 75 mg DAILY PO 12/24/24 10:00 12/25/24 09:50 75 MG Cyclobenzaprine HCl 5 mg TID PO 12/24/24 14:00 12/25/24 15:00 5 MG Lidocaine 1 patch DAILY@1700 TOP 12/26/24 17:00 Laboratory Results Laboratory Tests 12/25/24 06:29 Chemistry Test 12/25/24 06:29 Albumin 4.0 g/dL (3.2-4.8) Calcium Level 9.6 mg/dL (8.7-10.4) Total Protein 7.7 g/dL (5.7-8.2) LFT Test 12/25/24 06:29 Alanine Aminotransferase (ALT) 10 U/L (7-40) Alkaline Phosphatase 108 U/L (46-116) Aspartate Amino Transferase (AST) 21 U/L (13-40) Total Bilirubin 0.4 mg/dL (0.2-1.0) Urinalysis Test 12/24/24 01:40 Urine Color Yellow (Yellow) Urine Clarity Clear (Clear) Urine pH 6.0 (5.0-9.0) Urine Specific [place] 1.026 (1.001-1.035) Urine Protein Trace (Negative) H Urine Ketones Negative (Negative) Urine Blood Negative /uL (Negative) Urine Nitrite Negative (Negative) Urine Bilirubin Negative (Negative) Urine Urobilinogen 3 mg/dL (Negative) H Urine Leukocyte Esterase Negative /uL (Negative) Urine RBC 2 /hpf (0 - 3) Urine Microscopic WBC 6 /HPF (0-3) H Urine Squamous Epithelial Cells Few /hpf (<5) Urine Bacteria None seen /hpf (None Seen) Urine Glucose Normal mg/dL (Normal) Labs and/or images reviewed: Labs reviewed by me, Image(s) reviewed by me Assessment/Plan Assessment/Plan Impression: -chronic lower back pain -cholelithiasis -pulmonary nodule -scoliosis Plan: -patient had poor oral intake due to back pain. Further discussion with the patient reveals that he was currently taken off of Ultram for pain, which caused him to come to the hospital. -pain management: Lidocaine patch, attempt to use oxycodone in lieu Ultram -spinal surgery consultation: Medical management at this time -reassess for discharge in a.m. Total time spent with patient discussing and formulating plan of care: 35 minutes. This medical document was created using an electronic medical record system with [employer] dictation system. Although this document has been carefully reviewed, there may still be some phonetic and typographical errors. These areas are purely typographical due to imperfections of the software programs, and do not reflect any compromise in the patient's medical care. Plan discussed with: Patient, Other (RN) My Orders Orders - SHIRA CRUZ NP Procedure Category Date Status Time Lidocaine 5% Topical PHA 12/26/24 In Process Patch (Lidoderm 5% 17:00 Date of Service: Dec 25, 2024 Billing Provider: SHIRA CRUZ NP Common Visit Codes: [id number] INP/OBS CARE(HIGH) SHIRA CRUZ NP Dec 25, 2024 15:22
[2024-12-25] MEDS: LIDOCAINE 5% TOPICAL PATCH TOP ONE (17:23)
[2024-12-25 21:00] VITALS: BP 129/74; PULSE 87; RESP 18; TEMP 97.6; O2SAT 97
[2024-12-26] VITALS (7 sets, daily range): BP systolic 121–145; BP diastolic 62–81; PULSE 80–92; RESP 12–20; TEMP 97.6–98.1; O2SAT 95–99
--- NOTE | 2024-12-26 12:09 | DVHPN2 ---
Reviewed: Care Plan, H&P, Labs, Medications Changes from previous H/P or p: No Changes General: Per HPI Musculoskeletal: back pain Objective Vitals Vital Signs Date Time Temp Pulse Resp B/P (MAP) Pulse Ox O2 Delivery O2 Flow Rate FiO2 12/26/24 10:05 121/62 12/26/24 10:04 90 12/26/24 09:00 97.6 12 95 97.6 12/26/24 08:00 Room Air* 0 21 Intake/Output Intake and Output 12/26/24 07:00 Intake Total 540 ml Output Total 1000 ml Balance -460 ml Intake Oral 540 ml Output Urine Total 1000 ml General Appearance: Alert, Oriented X3, Cooperative, mild distress HEENT: Atraumatic, PERRLA Cardiovascular: Normal S1, Normal S2 Abdomen: Normal bowel sounds, Soft, No tenderness Musculoskeletal: Normal sensory function, Normal motor function Skin: Dry, Intact Psych/Mental Status: Mental status NL, Mood NL Medications Current Medications Medications Dose Ordered Sig/Enrique Route Start Time Stop Time Status Last Admin Dose Admin Acetaminophen/ Hydrocodone Bitart 1 tab Q4HP PRN PO 12/24/24 07:00 Cancel Ondansetron HCl 4 mg Q4HP PRN IV 12/24/24 07:00 12/24/24 10:02 4 MG Acetaminophen 650 mg Q6HP PRN PO 12/24/24 07:00 Cancel Nitroglycerin 0.4 mg Q5MINP PRN SL 12/24/24 07:00 Morphine Sulfate 2 mg Q30M PRN IV 12/24/24 07:00 12/24/24 10:04 2 MG Apixaban 5 mg BID PO 12/24/24 10:00 12/26/24 10:04 5 MG Atorvastatin Calcium 20 mg DAILY PO 12/24/24 10:00 12/26/24 10:04 20 MG Metoprolol Succinate 50 mg DAILY PO 12/24/24 10:00 12/26/24 10:04 50 MG Amlodipine Besylate 10 mg DAILY PO 12/24/24 10:00 12/26/24 10:05 10 MG Venlafaxine HCl 75 mg DAILY PO 12/24/24 10:00 12/26/24 10:05 75 MG Cyclobenzaprine HCl 5 mg TID PO 12/24/24 14:00 12/26/24 05:51 5 MG Lidocaine 1 patch DAILY@1700 TOP 12/26/24 17:00 Oxycodone HCl 5 mg Q6HP PRN PO 12/25/24 15:30 12/26/24 10:06 5 MG Laboratory Results Laboratory Tests 12/25/24 06:29 Urinalysis Test 12/24/24 01:40 Urine Color Yellow (Yellow) Urine Clarity Clear (Clear) Urine pH 6.0 (5.0-9.0) Urine Specific [place] 1.026 (1.001-1.035) Urine Protein Trace (Negative) H Urine Ketones Negative (Negative) Urine Blood Negative /uL (Negative) Urine Nitrite Negative (Negative) Urine Bilirubin Negative (Negative) Urine Urobilinogen 3 mg/dL (Negative) H Urine Leukocyte Esterase Negative /uL (Negative) Urine RBC 2 /hpf (0 - 3) Urine Microscopic WBC 6 /HPF (0-3) H Urine Squamous Epithelial Cells Few /hpf (<5) Urine Bacteria None seen /hpf (None Seen) Urine Glucose Normal mg/dL (Normal) Labs and/or images reviewed: Labs reviewed by me, Image(s) reviewed by me Assessment/Plan Assessment/Plan Covering for nurse practitioner Michael Hughes Acute on chronic intractable lower back pain Compression fracture T12/L1 chronic: Spine surgery consult by Dr. Anaya appreciated advised conservative management with the pain meds oxycodone Flexeril cholelithiasis Hypertension Hypercholesterolemia -pulmonary nodule -scoliosis Patient came from [facility] Plan discussed with: Patient Date of Service: Dec 26, 2024 Billing Provider: DAVIAN WILHELM MD Common Visit Codes: [id number] INP/OBS CARE(HIGH) DAVIAN WILHELM MD Dec 26, 2024 12:09
[2024-12-26] MEDS: LIDOCAINE 5% TOPICAL PATCH TOP SCH (17:07)
[2024-12-27] VITALS (7 sets, daily range): BP systolic 107–142; BP diastolic 67–85; PULSE 74–100; RESP 17–19; TEMP 97.3–97.7; O2SAT 95–99
--- NOTE | 2024-12-27 12:42 | DVHPN2 ---
Reviewed: Care Plan, H&P, Labs, Medications Changes from previous H/P or p: No Changes General: Per HPI Musculoskeletal: back pain Objective Vitals Vital Signs Date Time Temp Pulse Resp B/P (MAP) Pulse Ox O2 Delivery O2 Flow Rate FiO2 12/27/24 09:13 124/80 12/27/24 09:13 84 12/27/24 09:00 97.7 19 97 97.7 12/27/24 08:00 Room Air* 0 21 Intake/Output Intake and Output 12/27/24 07:00 Intake Total 900 ml Output Total 1550 ml Balance -650 ml Intake Oral 900 ml Output Urine Total 1550 ml General Appearance: Alert, Oriented X3, Cooperative, mild distress HEENT: Atraumatic, PERRLA Cardiovascular: Normal S1, Normal S2 Abdomen: Normal bowel sounds, Soft, No tenderness Musculoskeletal: Normal sensory function, Normal motor function Skin: Dry, Intact Psych/Mental Status: Mental status NL, Mood NL Medications Current Medications Medications Dose Ordered Sig/Enrique Route Start Time Stop Time Status Last Admin Dose Admin Acetaminophen/ Hydrocodone Bitart 1 tab Q4HP PRN PO 12/24/24 07:00 Cancel Ondansetron HCl 4 mg Q4HP PRN IV 12/24/24 07:00 12/24/24 10:02 4 MG Acetaminophen 650 mg Q6HP PRN PO 12/24/24 07:00 Cancel Nitroglycerin 0.4 mg Q5MINP PRN SL 12/24/24 07:00 Morphine Sulfate 2 mg Q30M PRN IV 12/24/24 07:00 12/24/24 10:04 2 MG Apixaban 5 mg BID PO 12/24/24 10:00 12/27/24 09:12 5 MG Atorvastatin Calcium 20 mg DAILY PO 12/24/24 10:00 12/27/24 09:12 20 MG Metoprolol Succinate 50 mg DAILY PO 12/24/24 10:00 12/27/24 09:13 50 MG Amlodipine Besylate 10 mg DAILY PO 12/24/24 10:00 12/27/24 09:13 10 MG Venlafaxine HCl 75 mg DAILY PO 12/24/24 10:00 12/27/24 09:12 75 MG Cyclobenzaprine HCl 5 mg TID PO 12/24/24 14:00 12/27/24 05:35 5 MG Lidocaine 1 patch DAILY@1700 TOP 12/26/24 17:00 12/26/24 17:07 1 PATCH Oxycodone HCl 10 mg Q6HP PRN PO 12/26/24 14:30 12/27/24 05:39 10 MG Laboratory Results Laboratory Tests 12/25/24 06:29 Urinalysis Test 12/24/24 01:40 Urine Color Yellow (Yellow) Urine Clarity Clear (Clear) Urine pH 6.0 (5.0-9.0) Urine Specific [place] 1.026 (1.001-1.035) Urine Protein Trace (Negative) H Urine Ketones Negative (Negative) Urine Blood Negative /uL (Negative) Urine Nitrite Negative (Negative) Urine Bilirubin Negative (Negative) Urine Urobilinogen 3 mg/dL (Negative) H Urine Leukocyte Esterase Negative /uL (Negative) Urine RBC 2 /hpf (0 - 3) Urine Microscopic WBC 6 /HPF (0-3) H Urine Squamous Epithelial Cells Few /hpf (<5) Urine Bacteria None seen /hpf (None Seen) Urine Glucose Normal mg/dL (Normal) Labs and/or images reviewed: Labs reviewed by me, Image(s) reviewed by me Assessment/Plan Assessment/Plan Covering for nurse practitioner Michael Hughes Acute on chronic intractable lower back pain Compression fracture T12/L1 chronic: Spine surgery consult by Dr. Anaya appreciated advised conservative management with the pain meds oxycodone Flexeril cholelithiasis Hypertension Hypercholesterolemia Status post left nephrectomy History of CABG and stents x 7 History of Pacemaker History of colon cancer: Status post hemicolectomy and Colostomy left lower quadrant -pulmonary nodule -scoliosis Patient came from nursing home facility Patient will be discharged to snf facility for rehab the patient agrees. Plan discussed with: Patient My Orders Orders - DAVIAN WILHELM MD Procedure Category Date Status Time Oxycodone Immediate PHA 12/26/24 In Process Rel Tablet 14:30 Date of Service: Dec 27, 2024 Billing Provider: DAVIAN WILHELM MD Common Visit Codes: [id number] CARE 30-74 MIN DAVIAN WILHELM MD Dec 27, 2024 12:42
--- NOTE | 2024-12-27 14:23 | DVHDS2 ---
Discharge Summary Date of Admission Dec 24, 2024 at 06:57 Date of Discharge: Dec 27, 2024 Admitting Diagnosis Severe back pain Wounds: Spine fracture Labs/Diagnostic Data: Laboratory Results Test 12/25/24 06:29 12/24/24 02:43 12/24/24 01:40 White Blood Count 7.1 10^3/uL (4.4-10.8) Red Blood Count 4.75 10^6/uL (4.5-5.90) Hemoglobin 12.9 g/dL (13.5-17.5) Hematocrit 38.9 % (41.0-53.0) Mean Corpuscular Volume 82.0 fL (80.0-100.0) Mean Corpuscular Hemoglobin 27.1 pg (28.0-32.0) Mean Corpuscular Hemoglobin Concent 33.0 g/dL (32.0-36.0) Red Cell Distribution Width 15.6 % (11.8-14.3) Platelet Count 273 10^3/uL (140-450) Mean Platelet Volume 7.3 fL (6.9-10.8) Neutrophils (%) (Auto) 72.3 % (37.0-80.0) Lymphocytes (%) (Auto) 13.2 % (10.0-50.0) Monocytes (%) (Auto) 10.9 % (0.0-12.0) Eosinophils (%) (Auto) 3.2 % (0.0-7.0) Basophils (%) (Auto) 0.4 % (0.0-2.0) Neutrophils # (Auto) 5.1 10 ^3/uL (1.6-8.6) Lymphocytes # (Auto) 0.9 10 ^3/uL (0.4-5.4) Monocytes # (Auto) 0.8 10 ^3/uL (0-1.3) Eosinophils # (Auto) 0.2 10 ^3/uL (0-0.8) Basophils # (Auto) 0 10 ^3/uL (0-0.2) Nucleated Red Blood Cells 0.0 % Sodium Level 136 mmol/L (136-145) Potassium Level 4.1 mmol/L (3.5-5.1) Chloride Level 103 mmol/L (98-107) Carbon Dioxide Level 24 mmol/L (20-31) Anion Gap 9 (5-15) Blood Urea Nitrogen 8 mg/dL (9-23) Creatinine 0.76 mg/dL (0.700-1.30) Glomerular Filtration Rate Calc 89 mL/min (>90) BUN/Creatinine Ratio 10.5 (10.0-20.0) Serum Glucose 90 mg/dL (74-106) Calcium Level 9.6 mg/dL (8.7-10.4) Total Bilirubin 0.4 mg/dL (0.2-1.0) Aspartate Amino Transferase (AST) 21 U/L (13-40) Alanine Aminotransferase (ALT) 10 U/L (7-40) Alkaline Phosphatase 108 U/L (46-116) Total Protein 7.7 g/dL (5.7-8.2) Albumin 4.0 g/dL (3.2-4.8) Troponin I High Sensitivity 5 ng/L (</=54) Urine Color Yellow (Yellow) Urine Clarity Clear (Clear) Urine pH 6.0 (5.0-9.0) Urine Specific [place] 1.026 (1.001-1.035) Urine Protein Trace (Negative) Urine Ketones Negative (Negative) Urine Blood Negative /uL (Negative) Urine Nitrite Negative (Negative) Urine Bilirubin Negative (Negative) Urine Urobilinogen 3 mg/dL (Negative) Urine Leukocyte Esterase Negative /uL (Negative) Urine RBC 2 /hpf (0 - 3) Urine Microscopic WBC 6 /HPF (0-3) Urine Squamous Epithelial Cells Few /hpf (<5) Urine Bacteria None seen /hpf (None Seen) Urine Glucose Normal mg/dL (Normal) Other Laboratory Tests 12/25/24 06:29 Brief Hx & Hospital Course: 84-year-old male had a mechanical fall and came to the hospital complaining of severe low back pain found to have T12/L1 compression fracture. Orthopedic consult spine surgeon Dr. Anaya advised conservative management with the pain medication muscle relaxant and physical therapy patient has a history of hypertension hypercholesterolemia status post left nephrectomy status post CABG status post stents x7 also has pacemaker history of colon cancer status post hemicolectomy and colostomy left lower quadrant. Patient received pain medications physical therapy and being discharged to care home facility for rehab. The plan is acceptable to the patient Consults/Reason for consult Spine surgeon Dr. Anaya Operations or Procedures CT LS spine Condition at Discharge: Fair Final Diagnosis/Problems List Acute on chronic intractable lower back pain Compression fracture T12/L1 chronic: Spine surgery consult by Dr. Anaya appreciated advised conservative management with the pain meds oxycodone Flexeril cholelithiasis Hypertension Hypercholesterolemia Status post left nephrectomy History of CABG and stents x 7 History of Pacemaker History of colon cancer: Status post hemicolectomy and Colostomy left lower quadrant -pulmonary nodule -scoliosis Discharge Disposition: [facility] Discharge Instruct/Medications Diet: Cardiac 2g Na,low cholest Activity: Light activity Follow Up/Referral: Follow up with the [facility] Medications: see list Scheduled Amlodipine Besylate (Amlodipine Besylate), 1 TAB PO DAILY, (Reported) Apixaban Base (Eliquis), 1 TAB PO BID, (Reported) Atorvastatin Calcium (Atorvastatin Calcium), 1 TAB PO DAILY, (Reported) Metoprolol Succinate (Metoprolol Succinate Er), 1 TAB PO DAILY, (Reported) Venlafaxine Hydrochloride (Venlafaxine Hydrochloride), 1 TAB PO DAILY, (Reported) 39 (Taken for discharge summary 39 minutes) Discharge Statement: "Patient was advised to return to the ER or call 911 if any headaches, dizziness, shortness of breath, chest pain, abdominal pain, bleeding, fevers, or worsening of medical condition. Patient was counseled about treatment plan, medications, possible side effects, patientverbalized understanding. All questions were answered to the best of my ability. This discharge took greater then 30 minutes in planning, reviewing documentation, counseling the patient, and discussing with other team members." ASSESSMENT ASSESSMENT Hospital Course Improved Assessment Acute on chronic intractable lower back pain Compression fracture T12/L1 chronic: Spine surgery consult by Dr. Anaya appreciated advised conservative management with the pain meds oxycodone Flexeril cholelithiasis Hypertension Hypercholesterolemia Status post left nephrectomy History of CABG and stents x 7 History of Pacemaker History of colon cancer: Status post hemicolectomy and Colostomy left lower quadrant -pulmonary nodule -scoliosis Date of Service: Dec 27, 2024 Billing Provider: DAVIAN WILHELM MD Common Visit Codes: [id number]/[id number] DISCH DAY >30min DAVIAN WILHELM MD Dec 27, 2024 14:23
[2024-12-27 15:03] LABS: COVID19 ANTIGEN SOFIA FIA NEGATIVE (NEGATIVE)
[2024-12-28 01:00] VITALS: BP 139/76; PULSE 88; RESP 17; TEMP 97.7; O2SAT 95
[2024-12-28 05:00] VITALS: BP 132/88; PULSE 93; RESP 19; TEMP 98; O2SAT 98
[2024-12-28 08:00] VITALS: PULSE 98; RESP 20; O2SAT 98
[2024-12-28 09:00] VITALS: BP 125/91; PULSE 98; RESP 22; TEMP 97.3; O2SAT 98
[2024-12-28 13:00] VITALS: BP 123/72; PULSE 85; RESP 20; TEMP 97.9; O2SAT 97
--- NOTE | 2024-12-28 13:06 | DVHPN2 ---
Reviewed: Care Plan, H&P, Labs, Medications Changes from previous H/P or p: No Changes General: Per HPI Musculoskeletal: back pain Objective Vitals Vital Signs Date Time Temp Pulse Resp B/P (MAP) Pulse Ox O2 Delivery O2 Flow Rate FiO2 12/28/24 09:00 97.3 98 22 125/91 (102) 98 97.3 12/28/24 08:00 Room Air* 0 21 Intake/Output Intake and Output 12/28/24 07:00 Intake Total 750 ml Output Total 1150 ml Balance -400 ml Intake Oral 750 ml Output Urine Total 1150 ml General Appearance: Alert, Oriented X3, Cooperative, mild distress HEENT: Atraumatic, PERRLA Cardiovascular: Normal S1, Normal S2 Abdomen: Normal bowel sounds, Soft, No tenderness Musculoskeletal: Normal sensory function, Normal motor function Skin: Dry, Intact Psych/Mental Status: Mental status NL, Mood NL Medications Current Medications Medications Dose Ordered Sig/Enrique Route Start Time Stop Time Status Last Admin Dose Admin Acetaminophen/ Hydrocodone Bitart 1 tab Q4HP PRN PO 12/24/24 07:00 Cancel Ondansetron HCl 4 mg Q4HP PRN IV 12/24/24 07:00 12/24/24 10:02 4 MG Acetaminophen 650 mg Q6HP PRN PO 12/24/24 07:00 Cancel Nitroglycerin 0.4 mg Q5MINP PRN SL 12/24/24 07:00 Morphine Sulfate 2 mg Q30M PRN IV 12/24/24 07:00 12/24/24 10:04 2 MG Apixaban 5 mg BID PO 12/24/24 10:00 12/28/24 08:53 5 MG Atorvastatin Calcium 20 mg DAILY PO 12/24/24 10:00 12/28/24 08:52 20 MG Metoprolol Succinate 50 mg DAILY PO 12/24/24 10:00 12/28/24 08:53 50 MG Amlodipine Besylate 10 mg DAILY PO 12/24/24 10:00 12/28/24 08:53 10 MG Venlafaxine HCl 75 mg DAILY PO 12/24/24 10:00 12/28/24 08:53 75 MG Cyclobenzaprine HCl 5 mg TID PO 12/24/24 14:00 12/28/24 05:48 5 MG Lidocaine 1 patch DAILY@1700 TOP 12/26/24 17:00 7/5/25 16:45 1 PATCH Oxycodone HCl 10 mg Q6HP PRN PO 12/26/24 14:30 12/28/24 08:54 10 MG Laboratory Results Laboratory Tests 12/25/24 06:29 Urinalysis Test 12/24/24 01:40 Urine Color Yellow (Yellow) Urine Clarity Clear (Clear) Urine pH 6.0 (5.0-9.0) Urine Specific [place] 1.026 (1.001-1.035) Urine Protein Trace (Negative) H Urine Ketones Negative (Negative) Urine Blood Negative /uL (Negative) Urine Nitrite Negative (Negative) Urine Bilirubin Negative (Negative) Urine Urobilinogen 3 mg/dL (Negative) H Urine Leukocyte Esterase Negative /uL (Negative) Urine RBC 2 /hpf (0 - 3) Urine Microscopic WBC 6 /HPF (0-3) H Urine Squamous Epithelial Cells Few /hpf (<5) Urine Bacteria None seen /hpf (None Seen) Urine Glucose Normal mg/dL (Normal) Labs and/or images reviewed: Labs reviewed by me, Image(s) reviewed by me Assessment/Plan Assessment/Plan Acute on chronic intractable lower back pain Compression fracture T12/L1 chronic: Spine surgery consult by Dr. Anaya appreciated advised conservative management with the pain meds oxycodone Flexeril cholelithiasis Hypertension Hypercholesterolemia Status post left nephrectomy History of CABG and stents x 7 History of Pacemaker History of colon cancer: Status post hemicolectomy and Colostomy left lower quadrant -pulmonary nodule -scoliosis Patient came from custod[facility] facility Patient was [facility] to [facility] for [facility] pain management on 12/27/2024: Awaiting transportation Plan discussed with: Patient My Orders Orders - DAVIAN WILHELM MD Procedure Category Date Status Time * [employer] Chief [employer] CONS 12/27/24 Transmitted Consult Discharge DISCHARGE 12/28/24 Transmitted 14:19 Date of Service: Dec 28, 2024 Billing Provider: DAVIAN WILHELM MD Common Visit Codes: [id number] INP/OBS CARE(HIGH) DAVIAN WILHELM MD Dec 28, 2024 13:06
== END 2024-12-28 15:00 | DRG 552 ==
LOC: ER 23:46 → EDBD 23:46 → OVERFLOW 12-24 06:57 → WEST WING 12-24 07:30
PROVIDERS: ADMIT Nurse Practitioner Acute Care; ATTEND Nurse Practitioner Acute Care
DX: S22.088A Other fracture of T11-T12 vertebra, initial encounter for closed fracture (principal); M47.816 Spondylosis without myelopathy or radiculopathy, lumbar region; K80.20 Calculus of gallbladder without cholecystitis without obstruction; E78.00 Pure hypercholesterolemia, unspecified; G89.29 Other chronic pain; M41.80 Other forms of scoliosis, site unspecified; R91.1 Solitary pulmonary nodule; Z93.3 Colostomy status; Z88.8 Allergy status to other drugs, medicaments and biological substances; Z95.5 Presence of coronary angioplasty implant and graft; Z95.1 Presence of aortocoronary bypass graft; Z95.0 Presence of cardiac pacemaker; Z90.49 Acquired absence of other specified parts of digestive tract; Z83.3 Family history of diabetes mellitus; Z82.49 Family history of ischemic heart disease and other diseases of the circulatory system; Z85.038 Personal history of other malignant neoplasm of large intestine; M54.30 Sciatica, unspecified side; Z90.5 Acquired absence of kidney; W18.39XA Other fall on same level, initial encounter; Y93.89 Activity, other specified; Y92.89 Other specified places as the place of occurrence of the external cause; Y99.8 Other external cause status
CPT/HCPCS: 36415; 71045; 72100; 74177; 80048; 80053; 81001; 84484; 85025; 87426; 93005; 96374; 96375; 97110; 97163; 97530; 99291; G0378; J2405

== ENCOUNTER 2025-01-03 18:44 | Inpatient (IN) | payer MEDICARE, BC ==
[~2025-01-03] VITALS: Ht 177.8 cm; Wt 65.2 kg
[~2025-01-03 18:44] MED LIST: AMLO1TAB23 PO; APIX5TAB PO; ATOR20TA50 PO; METO-289 PO; [UNRECOGNIZED DRUG - CODE] PO
--- NOTE | 2025-01-03 19:51 | ED.PDOC ---
Altered Mental Status HPI Comments 84 year old male came to ER via EMS for ALOC. Per EMS, patient picked up at [facility] [place], [place]. Few hours ago, noted by caregivers that patient has been acting altered and confused, speaking incomprehensible words, mumbling. Blood sugar was 113. Upon arrival, patient still speaks, mumbles incomprehensible words but follows commands. He does have history of colon cancer status post colostomy bag Chief Complaint: ALOC Time Seen by MD: 19:51 Primary Care Provider: UNKNOWN Reviewed Notes: Fiscal Analyst Notes Allergies: Coded Allergies: Acetaminophen (Verified Allergy, Unknown, 04/27/23) Home Meds Reported Medications Atorvastatin Calcium (ATORVASTATIN CALCIUM) 20 Mg Tab, 1 TAB PO DAILY 12/24/24 Apixaban Base (ELIQUIS) 5 Mg Tab, 1 TAB PO BID 12/24/24 Venlafaxine Hydrochloride (Venlafaxine Hydrochloride) 75 Mg Tab, 1 TAB PO DAILY 12/24/24 Metoprolol Succinate (Metoprolol Succinate Er) 50 Mg Tab, 1 TAB PO DAILY 12/24/24 Amlodipine Besylate (Amlodipine Besylate) 10 Mg Tab, 1 TAB PO DAILY 12/24/24 Information Source: Emergency Med Personnel Mode of Arrival: EMS Severity: Unable to Care for Self Timing: Hours Duration: Since onset Prehospital treatment: Accucheck Quality: Decreased Alertness, Change in Behavior, Confusion Review of Systems REVIEW OF SYSTEMS: General: No fever, no chills, or fatigue HEENT: No sore throat, no earache, no congestion, no neck pain. Cardiac: No chest pain. No palpitations. Lungs: No shortness of breath, no cough. GI: No nausea, no vomiting, no diarrhea, no constipation, no abdominal pain : No dysuria, frequency, or urgency. No hematuria. Musculoskeletal: No joint pain , no joint swelling, no extremity edema. Skin: No rash, no itching. Neuro: No headache, no dizziness, no weakness (+) Patient altered and confused PHYSICAL EXAM: General: Awake, alert and oriented. No acute distress. Skin: Skin in warm, dry and intact. Appropriate color for ethnicity. HEENT: The head is normocephalic and atraumatic. Conjunctivae are clear without exudates or hemorrhage. Sclera is non-icteric. EOM are intact. No signs of nystagmus. Eyelids are normal in appearance without swelling or lesions. Oral mucosa is pink and moist Neck: The neck is supple with normal range of motion. No JVD. Cardiac: Heart rate and rhythm are normal. No murmurs, gallops, or rubs are auscultated. Respiratory: No signs of respiratory distress. Lung sounds are clear in all lobes bilaterally without rales, rhonchi, or wheezes. Abdominal: Abdomen is soft, non-tender without distention, guarding or rigidity. Bowel sounds are present and normoactive in all four quadrants. Extremities: Upper and lower extremities are atraumatic in appearance without deformity or edema. Neurological: The patient is awake, alert and oriented to person, place, and time with normal speech. Speech is clear. There is no facial asymmetry. Psychiatric: Appropriate mood and affect. Good judgement and insight. Vital Signs Vital Signs Date Time Temp Pulse Resp B/P (MAP) Pulse Ox O2 Delivery O2 Flow Rate FiO2 01/03/25 20:15 121 96 Room Air* 0 21 01/03/25 19:07 149/74 (99) 01/03/25 19:02 98.7 18 98.7 Physical Exam PHYSICAL EXAM: General: Awake, alert and oriented. No acute distress. Skin: Skin in warm, dry and intact. Appropriate color for ethnicity. HEENT: The head is normocephalic and atraumatic. Conjunctivae are clear without exudates or hemorrhage. Sclera is non-icteric. EOM are intact. No signs of nystagmus. Eyelids are normal in appearance without swelling or lesions. Oral mucosa is pink and moist Neck: The neck is supple with normal range of motion. No JVD. Cardiac: Heart rate and rhythm are normal. No murmurs, gallops, or rubs are auscultated. Respiratory: No signs of respiratory distress. Lung sounds are clear in all lobes bilaterally without rales, rhonchi, or wheezes. Abdominal: Abdomen is soft, non-tender without distention, guarding or rigidity. Bowel sounds are present and normoactive in all four quadrants. Extremities: Upper and lower extremities are atraumatic in appearance without de formity or edema. Neurological: The patient is awake, alert and oriented to person, place, and time with normal speech. Speech is clear. There is no facial asymmetry. Psychiatric: Appropriate mood and affect. Good judgement and insight. Past Medical History PAST MEDICAL HISTORY: Cancer Past Medical History (Other): Colon cancer Surgical History: CABG, Cholecystectomy, Pacemaker Surgical History (Other): Colonoscopy Family History Family History: Pt Confused Social History Smoker: Pt Confused Alcohol: Pt Confused Drugs: Pt Confused Lives In: [facility] EKG EKG : Pulse Rate (adult): 137 Cardiac Rhythm: Afib Was a procedure done? Was a procedure done?: Yes Sedation Sedation?: No Intubation Indication: Altered Mental Status Prep: Preoxygenation Medicated with: Succinylcholine, Other (Etomidate) Intubation Approach: Orotracheal Intubation size: cm (7.5) Informed consent obtained: No Risks/benefits/alt described: No Differential Diagnosis (ALOC) Differential Diagnosis: Dehydration, Hypoglycemia, Encephalopathy, Sepsis, Hypoxemia, CVA X-Ray, Labs, Meds, VS Vital Signs Date Time Temp Pulse Resp B/P (MAP) Pulse Ox O2 Delivery O2 Flow Rate FiO2 01/03/25 20:15 121 96 Room Air* 0 21 01/03/25 20:12 134 01/03/25 19:51 137 01/03/25 19:07 120 149/74 (99) 01/03/25 19:02 98.7 98 18 140/86 (104) 95 98.7 01/03/25 18:44 137 Lab Test 01/03/25 20:03 Range/Units White Blood Count 21.1 H 4.4-10.8 10^3/uL Red Blood Count 4.68 4.5-5.90 10^6/uL Hemoglobin 12.2 L 13.5-17.5 g/dL Hematocrit 37.3 L 41.0-53.0 % Mean Corpuscular Volume 79.7 L 80.0-100.0 fL Mean Corpuscular Hemoglobin 26.1 L 28.0-32.0 pg Mean Corpuscular Hemoglobin Concent 32.7 32.0-36.0 g/dL Red Cell Distribution Width 15.2 H 11.8-14.3 % Platelet Count 434 140-450 10^3/uL Mean Platelet Volume 7.0 6.9-10.8 fL Neutrophils (%) (Auto) 90.1 H 37.0-80.0 % Lymphocytes (%) (Auto) 1.9 L 10.0-50.0 % Monocytes (%) (Auto) 7.8 0.0-12.0 % Eosinophils (%) (Auto) 0.1 0.0-7.0 % Basophils (%) (Auto) 0.1 0.0-2.0 % Neutrophils # (Auto) 19.0 H 1.6-8.6 10 ^3/uL Lymphocytes # (Auto) 0.4 0.4-5.4 10 ^3/uL Monocytes # (Auto) 1.6 H 0-1.3 10 ^3/uL Eosinophils # (Auto) 0 0-0.8 10 ^3/uL Basophils # (Auto) 0 0-0.2 10 ^3/uL Nucleated Red Blood Cells 0.0 % Sodium Level 132 L 136-145 mmol/L Potassium Level 5.1 3.5-5.1 mmol/L Chloride Level 97 L 98-107 mmol/L Carbon Dioxide Level 24 20-31 mmol/L Anion Gap 11 5-15 Blood Urea Nitrogen 16 9-23 mg/dL Creatinine 0.90 0.700-1.30 mg/dL Glomerular Filtration Rate Calc 84 >90 mL/min BUN/Creatinine Ratio 17.8 10.0-20.0 Serum Glucose 116 H 74-106 mg/dL Lactic Acid Level 2.1 *H 0.4-2.0 mmol/L Calcium Level 10.1 8.7-10.4 mg/dL Magnesium Level 2.1 1.6-2.6 mg/dL Total Bilirubin 0.6 0.2-1.0 mg/dL Aspartate Amino Transferase (AST) 42 H 13-40 U/L Alanine Aminotransferase (ALT) 15 7-40 U/L Alkaline Phosphatase 131 H 46-116 U/L Troponin I High Sensitivity 11 </=54 ng/L B-Type Natriuretic Peptide 104.25 0-100 pg/mL Total Protein 8.3 H 5.7-8.2 g/dL Albumin 4.3 3.2-4.8 g/dL Lipase 21 12-53 U/L Plasma/Serum Blood Alcohol 3.1 <10 mg/dL Current Medications Medications (Trade) Dose Ordered Sig/Enrique Route Start Time Stop Time Status Last Admin Sodium Chloride 1,000 ml @ 1,000 mls/hr Q1H ONCE IV 01/03/25 19:45 01/03/25 20:44 DC 01/03/25 20:13 Sodium Chloride 1,000 ml @ 1,000 mls/hr Q1H ONCE IV 01/03/25 20:30 01/03/25 21:29 DC 01/03/25 20:38 Sodium Chloride 1,000 ml @ 130 mls/hr Q7H42M ONCE IV 01/03/25 20:30 01/04/25 04:11 DC 01/03/25 22:07 Vancomycin HCl 200 ml @ 200 mls/hr ONCE ONCE IV 01/03/25 20:30 01/03/25 21:29 DC 01/03/25 20:38 Ceftriaxone Sodium 50 ml @ 100 mls/hr ONCE ONCE IV 01/03/25 20:30 01/03/25 20:59 DC 01/03/25 23:10 Procedure: CT HEAD WITHOUT CONTRAST Study Date and Requested Time: 01/03/2025 08:25 PM History: Altered mental status Comparison: None Dose: CTDI: 61.86 mGy DLP: 1342.55 mGycm Technique: Multiplanar images obtained through the brain without intravenous contrast. Findings: Streak artifact from dental amalgam limits evaluation of the inferior brain. Moderate diffuse brain atrophy. Utop-yj-kkynnldb chronic small-vessel ischemic changes. No hemorrhages, masses, mass effect, midline shift, herniation or cytotoxic edema following a large vascular territory. No intra-axial or extra-axial fluid collections. No evidence of hydrocephalus. The basal cisterns are patent. The pituitary gland, sella and parasellar regions are unremarkable. The cerebellar tonsils are in normal position. The cerebellum is unremarkable. Bilateral lens replacement. Otherwise, orbits and globes are unremarkable. The paranasal sinuses and mastoids are clear. There are no worrisome calvarial lesions. Impression: Artifact from dental amalgam limits evaluation of the inferior brain. Otherwise, no evidence for acute intracranial abnormalities. T RADIOGRAPH Indication: AMS Technique: Single frontal view of the chest was obtained Comparison: XY CHEST PORTABLE on DOS: 12/24/24 FINDINGS: Lines and Tubes: Dual-chamber pacemaker is in place with pulse generator over the left chest. Sternal wire sutures are in place with surgical clips over the pericardium. Lungs: No focal consolidation. Pleura: No effusion. No pneumothorax. Cardiomediastinal contours: Unremarkable Bones: No acute osseous abnormality. IMPRESSION: 1. No acute cardiopulmonary disease. Time of 1ST Reevaluation: 19:46 Reevaluation 1ST: Unchanged Time of 2ND Reevaluation: 05:03 Reevaluation 2ND: ETT replaced successfuly Patient Education/Counseling: Prognosis, Need For Follow Up, Other (patient altered) Family Education/Counseling: No Family Present SEPSIS Sepsis Screen Date sepsis recognized/suspect: Jan 03, 2025 Time Sepsis recognized/suspect: 1839 Recent Procedure: No On Antibiotic Therapy: No Respiratory Rate >20: No Heart Rate >90: Yes Temp<36 C (96.8 F) or >38.3 C: No SBP <90 or MAP <65 mmHG: No New Acute Mental Status Change: Yes Is the patient on CPAP, BIPAP,: No Physician Orders Electrocardigram (01/03/25 19:01) Chest Xray 1 View (01/03/25 19:31) Blood Culture (01/03/25 19:31) Saline Lock (01/03/25 19:31) Straight Cath. (01/03/25 ) Head Without Contrast (01/03/25 19:32) Vital Signs Date Time Temp Pulse Resp B/P (MAP) Pulse Ox O2 Delivery O2 Flow Rate FiO2 01/03/25 20:15 121 96 Room Air* 0 21 01/03/25 20:12 134 01/03/25 19:51 137 01/03/25 19:07 120 149/74 (99) 01/03/25 19:02 98.7 98 18 140/86 (104) 95 98.7 01/03/25 18:44 137 Laboratory Tests Test 01/03/25 20:03 Lactic Acid Level 2.1 mmol/L (0.4-2.0) *H White Blood Count 21.1 10^3/uL (4.4-10.8) H Medications Medications Dose Ordered Sig/Enrique Route Start Time Stop Time Status Last Admin Dose Admin Ceftriaxone Sodium 50 ml @ 100 mls/hr ONCE ONCE IV 01/03/25 20:30 01/03/25 20:59 DC 01/03/25 23:10 Sodium Chloride 1,000 ml @ 130 mls/hr Q7H42M ONCE IV 01/03/25 20:30 01/04/25 04:11 DC 01/03/25 22:07 Sodium Chloride 1,000 ml @ 1,000 mls/hr Q1H ONCE IV 01/03/25 19:45 01/03/25 20:44 DC 01/03/25 20:13 Sodium Chloride 1,000 ml @ 1,000 mls/hr Q1H ONCE IV 01/03/25 20:30 01/03/25 21:29 DC 01/03/25 20:38 Vancomycin HCl 200 ml @ 200 mls/hr ONCE ONCE IV 01/03/25 20:30 01/03/25 21:29 DC 01/03/25 20:38 Departure 1 Departure Time of Disposition: 20:24 Impression: Primary Impression: Altered mental status Additional Impressions: Sepsis Metabolic acidosis Acute respiratory failure Endotracheally intubated Disposition: ADMITTED INPATIENT Condition: Critical Comments 84-year-old male presented to the emergency department with altered mental status. Workup suggestive of sepsis. Antibiotics and IV fluids initiated in the emergency department Patient admitted to hospitalist service for further treatment, evaluation and monitoring. Patient's respiratory and mental status progressively declined Patient underwent endotracheal intubation for acute respiratory failure Repeat ABG showed metabolic acidosis Extensive evaluation was performed in attempt to identify or rule out: (See differential diagnosis section) The following test were independently interpreted by me: EKG I reviewed and agreed with the following test results read by other providers: Chest x-ray I reviewed the following notes from the pt's past medical encounters: N/A Additional information was gathered from interviewing the following independent historians: EMS personnel Discussion of management or test interpretation with external physician/other qualified health career development associate: N/A Addressed an acute or chronic illness that poses a threat to life or bodily function: Sepsis, respiratory failure, metabolic acidosis Decision regarding hospitalization or escalation of hospital level of care: Risk and benefits of admission for further treatment of patient's condition was considered. Due to patient's current clinical condition, high risk of decline and poor outcome if discharged and need for further inpatient management and monitoring, patient will be admitted to the hospital. Drug therapy requiring intensive monitoring for toxicity: IV etomidate, IV succ inylcholine, Parenteral controlled substances: IV Versed Decision regarding elective major surgery with identified patient or procedure risk factors: N/A Decision regarding emergency major surgery: N/A Decision not to resuscitate or to de-escalate care because of poor prognosis: N/A Diagnosis or treatment significantly limited by social determinants of health: N/A Critical Care Note Critical Care Time?: Yes (35 min-critical care time only) Critical care comment: Due to a high probability of clinically significant, life threatening deterioration, the patient required my highest level of preparedness to intervene emergently and I personally spent this critical care time directly and personally managing the patient. This critical care time included obtaining a history; examining the patient; pulse oximetry; ordering and review of studies; arranging urgent treatment with development of a management plan; evaluation of patient's response to treatment; frequent reassessment; and, discussions with other providers. This critical care time was performed to assess and manage the high probability of imminent, life-threatening deterioration that could result in multi-organ failure. It was exclusive of separately billable procedures and treating other patients and teaching time. Please see my other sections and the rest of the note for further information on patient assessment and treatment. Stability Stability form required: No Heart Score Heart Score: Heart Score Response (Comments) Value History N/A 0 EKG N/A 0 Age N/A 0 Risk Factors N/A 0 Troponin N/A 0 Total 0 I personally scribed for SAKINA VALLEJO MD ([email or web address]) on 01/03/25 at 19:51. Electronically submitted by Isaias Heath ([employer]). I personally scribed for SAKINA VALLEJO MD ([email or web address]) on 01/03/25 at 21:02. Electronically submitted by Isaias Heath ([email or web address]). I personally scribed for SAKINA VALLEJO MD ([email or web address]) on 01/03/25 at 23:34. Electronically submitted by Isaias Heath ([email or web address]). I personally scribed for SAKINA VALLEJO MD ([email or web address]) on 01/04/25 at 03:13. Electronically submitted by Isaias Heath ([facility] SAKINA VALLEJO MD Jan 03, 2025 19:51
[2025-01-03] MEDS: SODIUM CHLORIDE 0.9% 1,000 ML IV ONE ×3 (20:13→22:07)
[2025-01-03 20:15] VITALS: PULSE 121; O2SAT 96
[2025-01-03 20:19] LABS: Hematocrit 37.3 % (41.0-53.0); Hemoglobin 12.2 g/dL (13.5-17.5); Mean Corpuscular Hemoglobin 26.1 pg (28.0-32.0); Mean Corpuscular Volume 79.7 fL (80.0-100.0); Nucleated Red Blood Cells % 0.0 %
[2025-01-03 20:38] LABS: Alanine Aminotransferase 15 U/L (7-40); Albumin 4.3 g/dL (3.2-4.8); Anion Gap 11 (5-15); BUN/Creatinine Ratio 17.8 (10.0-20.0); Bilirubin, Total 0.6 mg/dL (0.2-1.0); Blood Urea Nitrogen 16 mg/dL (9-23); Calcium 10.1 mg/dL (8.7-10.4); Carbon Dioxide 24 mmol/L (20-31); Magnesium 2.1 mg/dL (1.6-2.6); Sodium 132 mmol/L (136-145)
[2025-01-03] MEDS: VANCOMYCIN 1GM/200ML PM 200 ML IV ONE (20:38)
[2025-01-03 20:39] LABS: Alkaline Phosphatase 131 U/L (46-116); Chloride 97 mmol/L (98-107); Glucose 116 mg/dL (74-106); Potassium 5.1 mmol/L (3.5-5.1); Total Protein 8.3 g/dL (5.7-8.2)
[2025-01-03 20:41] LABS: Lactic Acid w/Reflex 2.1 mmol/L (0.4-2.0)
[2025-01-03 20:52] LABS: Lipase 21 U/L (12-53)
--- NOTE | 2025-01-03 20:57 | DVH ---
CHEST RADIOGRAPH Indication: AMS Technique: Single frontal view of the chest was obtained Comparison: XY CHEST PORTABLE on DOS: 12/24/24 FINDINGS: Lines and Tubes: Dual-chamber pacemaker is in place with pulse generator over the left chest. Sternal wire sutures are in place with surgical clips over the pericardium. Lungs: No focal consolidation. Pleura: No effusion. No pneumothorax. Cardiomediastinal contours: Unremarkable Bones: No acute osseous abnormality. IMPRESSION: 1. No acute cardiopulmonary disease.
[2025-01-03] MEDS ORDERED: NITROGLYCERIN 0.4 MG SL TAB SL PRN (21:00)
[2025-01-03] MEDS ORDERED: VANCOMYCIN PER PHARMACY 0 MG IV SCH (21:00)
--- NOTE | 2025-01-03 21:03 | DVH ---
Procedure: CT HEAD WITHOUT CONTRAST Study Date and Requested Time: 01/03/2025 08:25 PM History: Altered mental status Comparison: None Dose: CTDI: 61.86 mGy DLP: 1342.55 mGycm Technique: Multiplanar images obtained through the brain without intravenous contrast. Findings: Streak artifact from dental amalgam limits evaluation of the inferior brain. Moderate diffuse brain a trophy. Ljhe-jg-myjdwtsi chronic small-vessel ischemic changes. No hemorrhages, masses, mass effect, midline shift, herniation or cytotoxic edema following a large v ascular territory. No intra-axial or extra-axial fluid collections. No evidence of hydrocephalus. The basal cisterns are patent. The pituitary gland, sella and parasellar regions are unremarkable. The cerebellar tonsils are in nor mal position. The cerebellum is unremarkable. Bilateral lens replacement. Otherwise, orbits and globes are unremarkable. The paranasal sinuses and mastoids are clear. There are no worrisome calvarial lesions. Impression: Artifact from dental amalgam limits evaluation of the inferior brain. Otherwise, no evidence for acu te intracranial abnormalities.
[2025-01-03 21:12] LABS: Urine Protein, UAD TRACE (Negative)
[2025-01-03 21:23] LABS: Opiate Scree,Urine Neg (NEGATIVE); Phencyclidine Screen, Urine Neg (NEGATIVE)
[2025-01-03 21:24] LABS: Amphetamine Screen, Urine Neg (NEGATIVE); Barbiturate Scree,Urine Neg (NEGATIVE); Benzodiazephine Screen, Urine Neg (NEGATIVE); Cannabinoid Screen, Urine Neg (NEGATIVE); Cocaine Screen, Urine Neg (NEGATIVE)
--- NOTE | 2025-01-03 21:34 | DVHHPRES ---
History of Present Illness Resident Creating Document: SHAWN MARTIN RESIDENT History of Present Illness This is a 84-year-old male with a past medical history of hypertension, CAD, status post pacemaker, status post CABG, hyperlipidemia, atrial fibrillation, colon cancer, s/p parial colectomy with colostomy bag in situ, chronic back pain presented to the ED via EMS from [facility] with a complaint of altered level of consciousness since morning prior to this admission. The patient is A&O X1, treated, confused normal severely dehydrated not able to give the history. History obtained from the EMS and mentioned according to the staff of the snf the patient become more confused and mumbling than the normal that prompted this visit. On admission the patient is septic, tachypneic, tachycardic, elevated WBC and lactic acid and severely dehydrated. Patient is on AFib with RVR likely due to sepsis. After admission patient was given 2 L IV bolus and started IV antibiotic vancomycin as per pharmacy and IV ceftriaxone 1 g daily. 2 L IV bolus patient heart rate disease going up to 167 to 170s and the patient was feeling uncomfortable, more confused. Started IV amiodarone as per protocol and transfer the patient to [facility]. Patient is admitted for further evaluation and management of sepsis. Patient was breathing fast at 45 to 50s, desaturating at 77, respiratory arrest needed emergency intubation. Past Medical History Hypertension, CAD, hyperlipidemia, atrial fibrillation, chronic back pain, colon cancer with colostomy Past Surgical History status post pacemaker, status post CABG, Lt nephrectomy, partial colectomy. Family History None Past Social History Nonsmoker, nonalcoholic and never used any drugs Lives in snf Review of Systems Constitutional: Yes: Fever, Chills; No: Sweats, Weakness, Malaise, Other Eyes: No: Pain, Vision change, Conjunctivae inflammation, Eyelid inflammation, Other, Redness ENT: No: Ear pain, Ear discharge, Nose pain, Nose discharge, Nose congestion, Mouth pain, Mouth swelling, Throat pain, Throat swelling, Other Respiratory: Shortness of breath; No: Cough, Dry, SOB with excertion, Wheezing, Hemoptysis, Pleuritic Pain, Sputum, Wheezing, Other Cardiovascular: Palpitations; No: Chest Pain, Orthopnea, Paroxysmal Noc. Dyspnea, Edema, Lt Headedness, Other Gastrointestinal: No: Nausea, Vomiting, Abdominal Pain, Diarrhea, Constipation, Melena, Hematochezia, Other Genitourinary: No Dysuria, No Frequency, No Incontinence, No Hematuria, No Retention, No Other Musculoskeletal: No: other, neck pain, shoulder pain, arm pain, back pain, hand pain, leg pain, foot pain Skin: No: Rash, Lesions, Jaundice, Bruising, Other Neurological: No: Weakness, Numbness, Incoordination, Change in speech, Confusion, Seizures, Other Allergies: Coded Allergies: Acetaminophen (Verified Allergy, Unknown, 04/27/23) Medications Current Medications Medications Dose Ordered Sig/Enrique Route Start Time Stop Time Status Last Admin Dose Admin Nitroglycerin 0.4 mg Q5MINP PRN SL 01/03/25 21:00 Morphine Sulfate 2 mg Q30M PRN IV 01/03/25 21:00 Vancomycin HCl 0 ml @ 0 mls/hr UD IV 01/03/25 21:00 UNV Ceftriaxone Sodium 50 ml @ 100 mls/hr DAILY IV 01/04/25 10:00 Enoxaparin Sodium 60 mg BID SC 01/03/25 22:00 UNV Exam Vital Signs Vital Signs Date Time Temp Pulse Resp B/P (MAP) Pulse Ox O2 Delivery O2 Flow Rate FiO2 01/03/25 20:15 121 96 Room Air* 0 21 01/03/25 19:07 149/74 (99) 01/03/25 19:02 98.7 18 98.7 Exam Physical exam: General: RASS -3, afebrile, mucosae are moist Cardiovascular: Normal S1 and S2. No murmurs, gallops or rubs Respiratory: Mechanically assisted ventilation, equal bilateral airway entree. Clear lung sounds on auscultation Abdomen: Soft, nontender, no organomegaly, normal bowel sounds MSK/skin: Mobilization of limbs cannot be evaluated. Skin is dry and warm. Neurological: Orientation cannot be assessed. No apparent motor no sensitive d eficits. Pupils are isocoric and reactive Labs/Xrays Labs Test 01/03/25 21:00 01/03/25 20:03 Range/Units White Blood Count 21.1 H 4.4-10.8 10^3/uL Red Blood Count 4.68 4.5-5.90 10^6/uL Hemoglobin 12.2 L 13.5-17.5 g/dL Hematocrit 37.3 L 41.0-53.0 % Mean Corpuscular Volume 79.7 L 80.0-100.0 fL Mean Corpuscular Hemoglobin 26.1 L 28.0-32.0 pg Mean Corpuscular Hemoglobin Concent 32.7 32.0-36.0 g/dL Red Cell Distribution Width 15.2 H 11.8-14.3 % Platelet Count 434 140-450 10^3/uL Mean Platelet Volume 7.0 6.9-10.8 fL Neutrophils (%) (Auto) 90.1 H 37.0-80.0 % Lymphocytes (%) (Auto) 1.9 L 10.0-50.0 % Monocytes (%) (Auto) 7.8 0.0-12.0 % Eosinophils (%) (Auto) 0.1 0.0-7.0 % Basophils (%) (Auto) 0.1 0.0-2.0 % Neutrophils # (Auto) 19.0 H 1.6-8.6 10 ^3/uL Lymphocytes # (Auto) 0.4 0.4-5.4 10 ^3/uL Monocytes # (Auto) 1.6 H 0-1.3 10 ^3/uL Eosinophils # (Auto) 0 0-0.8 10 ^3/uL Basophils # (Auto) 0 0-0.2 10 ^3/uL Nucleated Red Blood Cells 0.0 % Sodium Level 132 L 136-145 mmol/L Potassium Level 5.1 3.5-5.1 mmol/L Chloride Level 97 L 98-107 mmol/L Carbon Dioxide Level 24 20-31 mmol/L Anion Gap 11 5-15 Blood Urea Nitrogen 16 9-23 mg/dL Creatinine 0.90 0.700-1.30 mg/dL Glomerular Filtration Rate Calc 84 >90 mL/min BUN/Creatinine Ratio 17.8 10.0-20.0 Serum Glucose 116 H 74-106 mg/dL Lactic Acid Level 2.1 *H 0.4-2.0 mmol/L Calcium Level 10.1 8.7-10.4 mg/dL Magnesium Level 2.1 1.6-2.6 mg/dL Total Bilirubin 0.6 0.2-1.0 mg/dL Aspartate Amino Transferase (AST) 42 H 13-40 U/L Alanine Aminotransferase (ALT) 15 7-40 U/L Alkaline Phosphatase 131 H 46-116 U/L Troponin I High Sensitivity 11 </=54 ng/L B-Type Natriuretic Peptide 104.25 0-100 pg/mL Total Protein 8.3 H 5.7-8.2 g/dL Albumin 4.3 3.2-4.8 g/dL Lipase 21 12-53 U/L Plasma/Serum Blood Alcohol 3.1 <10 mg/dL SEPSIS Sepsis Screen Date sepsis recognized/suspect: Jan 03, 2025 Time Sepsis recognized/suspect: 1839 Recent Procedure: No On Antibiotic Therapy: No Respiratory Rate >20: No Heart Rate >90: Yes Temp<36 C (96.8 F) or >38.3 C: No SBP <90 or MAP <65 mmHG: No New Acute Mental Status Change: Yes Is the patient on CPAP, BIPAP,: No Physician Orders Electrocardigram (01/03/25 19:01) Drug Screen (01/03/25 19:31) Covid19 Antigen Rosita (01/03/25 ) Rapid Influenza A&B (01/03/25 19:31) Urinalysis (01/03/25 19:31) Chest Xray 1 View (01/03/25 19:31) Blood Culture (01/03/25 19:31) Saline Lock (01/03/25 19:31) Straight Cath. (01/03/25 ) Head Without Contrast (01/03/25 19:32) Sodium Chloride 0.9% (01/03/25 20:30) Sodium Chloride 0.9% (01/03/25 20:30) Vancomycin 1gm/200ml Pm (01/03/25 20:30) Admit (01/03/25 20:49) Nitroglycerin Sublingual (Ntrostat Subli (01/03/25 21:00) Morphine Sulfate Injection (01/03/25 21:00) Oxygen By Nasal Cannula (01/03/25 20:49) Stat Ekg For Chest Pain (01/03/25 20:49) Notify Md Of Changes From Base (01/03/25 20:49) Coil Taper For 24 Hours (01/03/25 20:49) Emergency Dysrhythmia Protocol (01/03/25 20:49) Rhythm Strips Once Every Shift (01/03/25 20:49) Vancomycin Per Pharmacy (01/03/25 21:00) Ceftriaxone 1gm/50ml D5w (Rocephin) (01/04/25 10:00) Mrsa Screen (01/03/25 20:59) Enoxaparin Sodium (Lovenox) (01/03/25 22:00) Vital Signs Date Time Temp Pulse Resp B/P (MAP) Pulse Ox O2 Delivery O2 Flow Rate FiO2 01/03/25 20:15 121 96 Room Air* 0 21 01/03/25 20:12 134 01/03/25 19:51 137 01/03/25 19:07 120 149/74 (99) 01/03/25 19:02 98.7 98 18 140/86 (104) 95 98.7 01/03/25 18:44 137 Laboratory Tests Test 01/03/25 20:03 Lactic Acid Level 2.1 mmol/L (0.4-2.0) *H White Blood Count 21.1 10^3/uL (4.4-10.8) H Medications Medications Dose Ordered Sig/Enrique Route Start Time Stop Time Status Last Admin Dose Admin Sodium Chloride 1,000 ml @ 1,000 mls/hr Q1H ONCE IV 01/03/25 19:45 01/03/25 20:44 DC 01/03/25 20:13 1,000 MLS/HR Sodium Chloride 1,000 ml @ 1,000 mls/hr Q1H ONCE IV 01/03/25 20:30 01/03/25 21:29 01/03/25 20:38 1,000 MLS/HR Vancomycin HCl 200 ml @ 200 mls/hr ONCE ONCE IV 01/03/25 20:30 01/03/25 21:29 01/03/25 20:38 200 MLS/HR Assessment/Plan Assessment/Plan Assessment and plan: # Acute metabolic encephalopathy likely due to sepsis, on mechanical ventilation. # Septic shock with sepsis # Sepsis secondary to possible Gram-positive/Gram-negative pneumonia # Possible aspiration pneumonia # Lactic acidosis due to sepsis - Initially patient was tachycardic, tachypneic, elevated WBC count and lactic acid and also elevated temperature 101.4 - normal saline 2 L bolus given, followed by NS at 130 mL/hours - COVID, flu negative and MRSA pending - Chest x-ray showed possible left-sided lower lobe consolidation - IV vancomycin as per pharmacy and IV cefepime 1 g 12hrly # paroxysmal atrial fibrillation with RVR secondary to sepsis # Atrial fibrillation with secondary hypercoagulable state # History of CAD, s/p [id number] stents, s/p CABG, s/p pacemaker - [id number] 4 - IV amiodarone as per protocol - Lovenox 60 mg sc b.i.d. - Ordered echo # Transaminitis without hyperbilirubinemia secondary to sepsis # History of colon cancer, s/p colostomy - Monitor CMP # Mild hyponatremia likely due to reduced p.o. intake - IV normal saline at 130 mL/hours # DVT prophylaxis - Patient is on Lovenox # PUD prophylaxis -Protonix 40 mg IV daily Lines : central line placed on 01/04/25 Intubation on 01/04/25 Harrell catheter placed on 01/03/25 Pressor: Norepinephrine, Vasopressin Goal of care discussed with the son Dk full code Plan discussed with Dr. Gallagher Plan discussed with: Other (RN) My Orders Orders - SHAWN MARTIN Procedure Category Date Status Time Admit ADMIT 01/03/25 Transmitted 20:49 Nitroglycerin PHA 01/03/25 In Process Sublingual (Ntrostat 21:00 Morphine Sulfate PHA 01/03/25 In Process Injection 21:00 Oxygen By Nasal RT 01/03/25 Transmitted Cannula 20:49 Stat Ekg For Chest KENDLA 01/03/25 In Process Pain 20:49 Notify Of Changes KENDAL 01/03/25 In Process From Base 20:49 Coil Taper For KENDAL 01/03/25 In Process 24 Hours 20:49 Emergency Dysrhythmia KENDAL 01/03/25 In Process Protocol 20:49 Rhythm Strips Once KENDAL 01/03/25 In Process Every Shift 20:49 Vancomycin Per PHA 01/03/25 Pending Pharmacy 21:00 Ceftriaxone 1gm/50ml PHA 01/04/25 In Process D5w (Rocephin) 10:00 Mrsa Screen BARON 01/03/25 Logged 20:59 Enoxaparin Sodium PHA 01/03/25 Logged (Lovenox) 22:00 Date of Service: Jan 04, 2025 Billing Provider: KEI GALLAGHER MD Common Visit Codes: [id number] INP/OBS CARE (HIGH) SHAWN MARTIN RESIDENT Jan 03, 2025 21:33
[2025-01-03 22:06] LABS: COVID19 ANTIGEN SOFIA FIA NEGATIVE (NEGATIVE)
[2025-01-03] MEDS: ENOXAPARIN SOD 60 MG/0.6 ML SYRINGE SC SCH (22:13)
[2025-01-03] MEDS: cefTRIAXone 1GM/50ML D5W 50 ML IV ONE (23:10)
[2025-01-03] MEDS: MORPHINE SULFATE INJ 2 MG/ml SYRG IV PRN (23:29)
[2025-01-04] VITALS (69 sets, daily range): BP systolic 43–161; BP diastolic 21–115; PULSE 85–157; RESP 16–49; TEMP 96.4–100.4; O2SAT 82–100
[2025-01-04] MEDS: AMIODARONE BOLUS KIT 100 ML IV ONE
[2025-01-04 00:04] LABS: Base Excess -5.7 mmol/L (-2.0-3.0)
[2025-01-04] MEDS: AMIODARONE 360mg/200mL PREMIX 200 ML IV SCH (00:47)
[2025-01-04] MEDS: LORazepam 2MG/ML-1ML VIAL IV ONE (02:15)
[2025-01-04] MEDS: LEVALBUTEROL HCL 1.25 MG/3 ML NEB NEB ONE (02:33)
[2025-01-04] MEDS: IPRATROPIUM BROM 0.5 MG/2.5ML INH SOL NEB ONE (02:33)
[2025-01-04] MEDS: ETOMIDATE (2MG/ML) 20ML VIAL IV ONE ×3 (03:03→03:04)
[2025-01-04] MEDS: SUCCINYLCHOLINE CHLORIDE 20 MG/ML 10ML VIAL IV ONE ×3 (03:04)
[2025-01-04] MEDS: NOREPINEPHRINE 8 MG/250ML KIT 250 ML IV ONE ×2 (03:05→03:06)
[2025-01-04] MEDS: MIDAZOLAM DRIP 50 mg/50mL 50 ML IV ONE (03:06)
[2025-01-04] MEDS: NOREPINEPHRINE 8 MG/250ML KIT 250 ML IV SCH (03:06)
[2025-01-04 03:31] LABS: Base Excess -26.0 mmol/L (-2.0-3.0)
[2025-01-04] MEDS: SODIUM BICARB 50mEq/50ml Vial 50 ML in D5W 5% 1,000 ML IV SCH (03:45)
[2025-01-04] MEDS: SODIUM BICARB 8.4% 50Meq/50ml SYR Vial IV ONE (03:45)
[2025-01-04] MEDS: MIDAZOLAM DRIP 50 mg/50mL 50 ML IV SCH (04:00)
--- NOTE | 2025-01-04 04:03 | DVH ---
CHEST RADIOGRAPH Indication: Post intubation Technique: Single frontal view of the chest was obtained COMPARISON: XY CHEST XRAY 1 VIEW on DOS: 01/03/25, XY CHEST PORTABLE on DOS: 12/24/24 FINDINGS: Lines and Tubes: Status post interval intubation with endotracheal tube tip projecting approximately 2.6 cm above the level of the lewis. Enteric catheter terminates within the distal esophagus. Left a nterior chest wall cardiac pacing device redemonstrated. Lungs: Streaky bilateral predominantly perihilar pulmonary airspace disease. No definite focal consol idation. Pleura: No effusion. No pneumothorax. Cardiomediastinal contours: Unremarkable status post median sternotomy. Bones: Unremarkable IMPRESSION: 1. Endotracheal tube status post interval intubation. 2. Enteric catheter tip within the distal esophagus. Recommend advancement. 3. Streaky bilateral predominantly perihilar pulmonary infiltrate.
[2025-01-04] MEDS: SODIUM CHLORIDE 0.9% 1,000 ML IV ONE (04:11)
[2025-01-04] MEDS ORDERED: ENOXAPARIN SOD 60 MG/0.6 ML SYRINGE SC SCH (04:30)
--- NOTE | 2025-01-04 04:40 | RESUS ---
SALUD LIZ ASSESSSMENT History of Events History of Events: Pt presented to ER for ALOC and admitted for Sepsis d/t Pneumonia. Per primary RNs taking care of pt, pt was A&Ox3 at time arrival and currently A&Ox0. Pt in Afib RVR in 150s and respiratory rate of 40s-50s. Pt given breathing tx but remains elevated respiratory rate. While MDs at bedside, pt observed to go into respiratory arrest; pulses present. SALUD LIZ called. Initial Information Date: Jan 04, 2025 Time: : Location of Arrest: ER Arrest Witnessed: Yes Pre-Hospital Care: Pre-Code Care (inpatient) Type of arrest: Respiratory, Adult, Witnessed Spontaneous Respirations: No Pulse Present: Yes Monitoring: ECG, Pulse Oximetry, Telemetry Crash Cart Opened and Supplies: Yes Airway Ventilation Breathing at Onset: Assisted Oxygen Delivery Method: Ambu-Bag Time of first Assisted Ventila: :57 Artificial Ventilation: Bag/Mask Intubation Time: 03:04 Intubation Size: 8.0 cuffed Intubated by: Dr Truong Intubation Attempts: 1 Intubated orally: Yes Intubated Nasaly: No Tube secured at: 24 (cm @ lip) Cricoid pressure done: Yes CO2 indicator used: Yes Confirmation: Auscultation, Chest X-ray Suctioning (Oral/Tracheal): Yes Circulation Circulation #1: Time: 02:55 Pulse Rate (adult): 139 Temperature (Fahrenheit): 99.8 (F; rectal) Circulation #2: Time: 03:00 Pulse Rate (adult): 88 Circulation #3: Time: 03:05 Pulse Rate (adult): 70 Blood Pressure Systolic: 46 Blood Pressure Diastolic: 14 Circulation #4: Time: 03:10 Pulse Rate (adult): 73 Blood Pressure Systolic: 63 Blood Pressure Diastolic: 33 Circulation #5: Time: 03:15 Pulse Rate (adult): 80 Circulation #6: Time: 03:20 Pulse Rate (adult): 95 Blood Pressure Systolic: 51 Blood Pressure Diastolic: 34 Circulation #7: Time: 03:25 Pulse Rate (adult): 98 Blood Pressure Systolic: 68 Blood Pressure Diastolic: 46 Circulation #8: Time: 03:30 Pulse Rate (adult): 101 Blood Pressure Systolic: 61 Blood Pressure Diastolic: 34 Procedure - IV Procedure - IV #1: IV Side: Left IV Location: Upper Arm Anterior IV Catheter Type: Saline Lock IV Placed: In Hospital IV Gauge: 20 IV Line Care: Saline Flush Comment IV initiated prior to code Procedure - IV #2: IV Side: Right IV Location: Hand IV Catheter Type: Saline Lock IV Placed: In Hospital IV Gauge: 20 IV Line Care: Saline Flush Comment IV initiated prior to code Medications & Response Medications and Responses #1: Medication Time: 03:03 Route of Administration: IV Medication Comment: Etomidate 20mg IVP Heart Rate: 61 Medications and Responses #2: Medication Time: 03:04 Route of Administration: IV Medication Comment: Succinylocholine Chloride 100mg IVP Heart Rate: 61 Procedure - NG/OG Tube Procedure - NG/OG Tube : Type of gastric tube placed: OG Time gastric tube placed: 03:30 Gastric Tube Location: Oral Tube Size: 16 GI Tube Secured: Yes (at 40cm to ETT) Gastric Tube Suction Type/Desc: Clamped Gastric Content Description: [place] NG Tube Patency/Placement: Auscultated, Aspirated NG/OG tube inserted by: Lazara Glover RN Procedure - ABG ABG Time: 03:20 ABG site: Lt Radial ABG done by: RT Ced ABG number of attempts: 2 Procedure - Harrell Catheter Urinary Catheter Type/Location: Uretheral (Harrell) Urine Appearance: Clear Urine Color: Straw Harrell Catheter Secured: Yes Comment: Harrell placed prior to code Nurses Notes [place] Coma Scale Eye Opening: None (1) [place] Coma Scale Verbal: None (1) [place] Coma Scale Motor: None (1) [place] Total: 3 Pupil Reaction: Sluggish Bedside Blood Glucose: 171 EKG Rhythm: Sinus Tachycardia (HR 111 @ 0309) Nurses Notes - Comment: 1L NS bolus initiated at 0304 Levophed drip started at 0307 - Verbal order to start at 30mcg/min Time Code Ended Time Code Ended: 03:04 Post Arrest Status: Ventilated Outcome of code: Successful Family notified: Yes Code Team Present: Dr Truong - ER MD; Dr Cohn - Resident; Jose Hilton RN - ER Charge; Tabatha Ambrocio RN - Plc Engineer; RT Ced; Bhavya Hernandez RN - Primary RN; Molly Alonzo RT; Maranda G, ERT; Shantal S, ERT Post Resuscitation Neurologica Pupil Size: 4 ROSC Time of ROSC: 03:04 Tabatha Medley Jan 04, 2025 04:40
[2025-01-04 06:16] LABS: Hematocrit 32.9 % (41.0-53.0); Hemoglobin 10.1 g/dL (13.5-17.5); Mean Corpuscular Hemoglobin 26.1 pg (28.0-32.0); Mean Corpuscular Volume 85.0 fL (80.0-100.0)
--- NOTE | 2025-01-04 06:18 | DVHNC2 ---
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 of systems manager (Shawn machado) Indication: Hypotension, CVP monitoring, Volume resuscitation Room prepared for procedure: Yes Director Economic performed hand hygien: Yes Maximal sterile barrier precau: Mask/Eye shield, Sterile gown, Cap, Sterlie gloves, Large sterlie drape Skin Preparation: Chlorhexidine gluconate, Providine iodine Skin preparation completely dr: Yes Insertion site: Right, Internal jugular Central line catheter type: [id number] dialysis Number of lumens: 3 Central line exchanged over a: No Antiseptic ointment applied to: Yes Post Assessment: Chest X-Ray, No Pneumothorax Informed consent obtained: No Notes A time out was performed. My hands were washed immediately prior to the proced ure. I wore a surgical cap, mask with protective eyewear, full gown and sterile gloves throughout the procedure. The patient was placed in Trendelenburg position. RIGHT chest region was prepped using chlorhexidine scrub and draped in sterile fashion using a full drape and sterile probe cover and sterile gel employed. The medial and lateral heads of the sternocleidomastoid muscle were identified as was the carotid pulse. The Internal Jugular vein was identified using the ultrasound. Anesthesia was achieved over the vein using 1% lidocaine. Using real-time out of plane guidance, the introducer needle was inserted into the Internal Jugular vein under direct ultrasound visualization. Venous blood was withdrawn. The syringe was removed and a guidewire was advanced into the introducer needle. The guidewire was visualized in the Internal Jugular Vein by ultrasound. A small incision was made at the skin surface with a scalpel and the introducer needle was exchanged for a dilator over the guidewire. After appropriate dilation was obtained, the dilator was exchanged over the wire for a triple lumen central venous catheter. The wire was removed and the catheter was sutured in place at 2 places. A sterile sorbaview shield was placed over the catheter at the insertion site. The patient tolerated the procedure without any hemodynamic compromise. At time of procedure completion, all ports aspirated and flushed properly. Post-procedure chest x-ray excluded pneumothorax. Estimated blood loss is [address] Truong Date of Service: Jan 04, 2025 Billing Provider: SAKINA TRUONG MD Common Visit Codes: PROCEDURE ONLY Procedure Codes: [id number] NON-TUNNEL CV CATH SHAWN MACHADO RESIDENT Jan 04, 2025 06:18
[2025-01-04 06:20] LABS: Chloride 105 mmol/L (98-107); Potassium 4.2 mmol/L (3.5-5.1); Sodium 138 mmol/L (136-145)
[2025-01-04 06:22] LABS: Calcium 7.6 mg/dL (8.7-10.4)
[2025-01-04 06:23] LABS: INR 2.02 (0.9-1.15); Partial Thromboplastin Time 43.3 SEC (24.5-34.5); Prothrombin Time 20.0 sec (9.3-11.8)
[2025-01-04 06:26] LABS: BUN/Creatinine Ratio 16.4 (10.0-20.0)
[2025-01-04] MEDS: LEVALBUTEROL HCL 1.25 MG/3 ML NEB NEB SCH (06:30)
[2025-01-04] MEDS: IPRATROPIUM BROM 0.5 MG/2.5ML INH SOL NEB SCH (06:30)
[2025-01-04 06:31] LABS: Blood Urea Nitrogen 23 mg/dL (9-23); Glucose 146 mg/dL (74-106); Lactic Acid w/Reflex 9.7 mmol/L (0.4-2.0)
[2025-01-04 06:42] LABS: Anion Gap 21 (5-15)
[2025-01-04 06:43] LABS: Total Cells Counted 100.0 (100)
[2025-01-04 06:44] LABS: Anisocytosis Slight; Carbon Dioxide 12 mmol/L (20-31); Ovalocytes FEW
--- NOTE | 2025-01-04 07:13 | DVH ---
CHEST RADIOGRAPH Indication: CENTRAL LINE Technique: XY CHEST XRAY 1 VIEW COMPARISON: 01/04/2025 FINDINGS: The endotracheal tube tip projects 2.2 cm above the lewis. Nasogastric tube tip projects over the distal esophagus. Recommend repositioning / advancement. Right IJ catheter tip projects over the right atrium. Left chest single lead cardiac pacer device. The cardiac silhouette is enlarged. Aortic valvular prosthesis. The lungs demonstrate bilateral patch y airspace opacities. The pulmonary vasculature is prominent. Small left pleural effusion. There is n o pneumothorax. IMPRESSION: As above
[2025-01-04] MEDS ORDERED: LACTATED RINGER'S 1,000 ML IV SCH (07:30)
--- NOTE | 2025-01-04 08:51 | ECG ---
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
--- NOTE | 2025-01-04 08:52 | ECG ---
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
[2025-01-04] MEDS: HEPARIN DRIP/D5W 100UNITS/ML 250 ML IV SCH (09:09)
[2025-01-04] MEDS: VASOPRESSIN 20 UNITS in SODIUM CHL 0.9% 99 ML IV SCH (09:35)
--- NOTE | 2025-01-04 09:54 | DVHPN2 ---
Subjective Nonresponsive Reviewed: Care Plan, H&P, Labs, Medications Changes from previous H/P or p: No Changes General: Per HPI Eyes: No Pain, No Vision change, No Conjunctivae inflammation, No Eyelid inflammation, No Other, No Redness ENT: No Ear pain, No Ear discharge, No Nose pain, No Nose discharge, No Nose congestion, No Mouth pain, No Mouth swelling, No Throat pain, No Throat swelling, No Other Cardiovascular: No Chest Pain; Palpitations; No Orthopnea, No Paroxysmal Noc. Dyspnea, No Edema, No Lt Headedness, No Other Respiratory: No Cough, No Dry; Shortness of breath; No SOB with excertion, No Wheezing, No Hemoptysis, No Pleuritic Pain, No Sputum, No Other Gastrointestinal: No Nausea, No Vomiting, No Abdominal Pain, No Diarrhea, No Constipation, No Melena, No Hematochezia, No Other Genitourinary: No Dysuria, No Frequency, No Incontinence, No Hematuria, No Retention, No Other Musculoskeletal: No other, No neck pain, No shoulder pain, No arm pain, No back pain, No hand pain, No leg pain, No foot pain Skin: No Rash, No Lesions, No Jaundice, No Bruising, No Other Objective Vitals Vital Signs Date Time Temp Pulse Resp B/P (MAP) Pulse Ox O2 Delivery O2 Flow Rate FiO2 01/04/25 09:35 109/61 01/04/25 08:28 107 27 100 100 01/04/25 04:40 Ambu-Bag 01/04/25 02:51 6.0 Intake/Output Intake and Output 01/04/25 07:00 Intake Total 4064.98 ml Output Total 500 ml Balance 3564.98 ml Intake IV Total 4064.98 ml Output Urine Total 500 ml General Appearance: severe distress, Other (Chemically sedated) HEENT: PERRLA Lungs: Other (Mechanical ventilation) Cardiovascular: Other (Atrial fibrillation with rapid ventricular rate) Abdomen: Other (Colostomy) Genitourinary: No Apparent Abnormalities Skin: Dry, Intact Medications Current Medications Medications Dose Ordered Sig/Enrique Route Start Time Stop Time Status Last Admin Dose Admin Nitroglycerin 0.4 mg Q5MINP PRN SL 01/03/25 21:00 Morphine Sulfate 2 mg Q30M PRN IV 01/03/25 21:00 01/03/25 23:29 2 MG Vancomycin HCl 0 ml @ 0 mls/hr UD IV 01/03/25 21:00 Levalbuterol HCl 0.625 mg Q6HR NEB 01/04/25 06:00 01/04/25 06:30 0.625 MG Ipratropium [place] 0.5 mg Q6HR NEB 01/04/25 06:00 01/04/25 06:30 0.5 MG Sodium Bicarbonate 50 ml/ Dextrose 1,050 ml @ 100 mls/hr [id number] IV 01/04/25 03:45 01/04/25 03:45 100 MLS/HR Atorvastatin Calcium 20 mg DAILY PO 01/04/25 10:00 Metoprolol Succinate 50 mg DAILY PO 01/04/25 10:00 Enoxaparin Sodium 60 mg BID SC 01/04/25 04:30 01/04/25 04:35 UNV Norepinephrine Bitartrate 250 ml @ 3.75 mls/hr Q24H IV 01/04/25 03:06 01/04/25 03:06 56.25 MLS/HR Midazolam HCl 50 ml @ 1 mls/hr Q24H IV 01/04/25 04:00 01/04/25 04:00 1 MLS/HR Vasopressin 20 units/Sodium Chloride 100 ml @ 9 mls/hr Q11H7M IV 01/04/25 05:00 Cefepime HCl 50 ml @ 12.5 mls/hr Q12HR IV 01/04/25 10:00 Pantoprazole Sodium 40 mg DAILY IV 01/04/25 10:00 Fentanyl Citrate 250 ml @ 2.5 mls/hr Q24H IV 01/04/25 06:15 Heparin Sodium/ Dextrose 250 ml @ 8 mls/hr Q24H IV 01/04/25 09:09 Lactated Ringer's 1,000 ml @ 100 mls/hr Q10H IV 01/04/25 07:30 Laboratory Results Laboratory Tests 01/04/25 05:30 Chemistry Test 01/03/25 20:03 01/04/25 05:30 Albumin 4.3 g/dL (3.2-4.8) Calcium Level 10.1 mg/dL (8.7-10.4) 7.6 mg/dL (8.7-10.4) L Magnesium Level 2.1 mg/dL (1.6-2.6) Total Protein 8.3 g/dL (5.7-8.2) H Coagulation Test 01/04/25 05:30 Prothrombin Time 20.0 sec (9.3-11.8) H Prothrombin Time INR 2.02 (0.9-1.15) H Activated Partial Thromboplast Time 43.3 SEC (24.5-34.5) H D-Dimer, Quantitative 3.68 mg/L FEU (0.0-0.49) H Lipid panel Test 01/03/25 20:03 Lipase 21 U/L (12-53) Cardiac Markers Test 01/03/25 20:03 B-Type Natriuretic Peptide 104.25 pg/mL (0-100) LFT Test 01/03/25 20:03 Alanine Aminotransferase (ALT) 15 U/L (7-40) Alkaline Phosphatase 131 U/L (46-116) H Aspartate Amino Transferase (AST) 42 U/L (13-40) H Total Bilirubin 0.6 mg/dL (0.2-1.0) HgA1c, TSH Test 01/04/25 05:30 Thyroid Stimulating Hormone (TSH) 1.01 uIU/mL (0.55-4.78) Urinalysis Test 01/03/25 21:00 Urine Color Yellow (Yellow) Urine Clarity Clear (Clear) Urine pH 5.5 (5.0-9.0) Urine Specific [place] 1.021 (1.001-1.035) Urine Protein Trace (Negative) H Urine Ketones Negative (Negative) Urine Blood Negative /uL (Negative) Urine Nitrite Negative (Negative) Urine Bilirubin Negative (Negative) Urine Urobilinogen Normal mg/dL (Negative) Urine Leukocyte Esterase Negative /uL (Negative) Urine RBC 9 /hpf (0 - 3) Urine Microscopic WBC 4 /HPF (0-3) H Urine Squamous Epithelial Cells Few /hpf (<5) Urine Bacteria None seen /hpf (None Seen) Urine Mucus Few (None Seen) Urine Glucose Normal mg/dL (Normal) Blood Gas Results Test 01/03/25 23:50 01/04/25 03:20 Arterial Blood pH 7.465 (7.350-7.450) 6.878 (7.350-7.450) FiO2 % 45.0 100.0 Labs and/or images reviewed: Labs reviewed by me, Image(s) reviewed by me Assessment/Plan Assessment/Plan Impression: -acute hypoxic respiratory failure -NSTEMI, probably type 1 -history of CAD with CABG -acute kidney injury, vasomotor nephropathy -severe metabolic acidosis -lumbar spinal stenosis -severe sepsis with shock -probable aspiration pneumonia Plan: -long discussion made with the patient's sister and son who was bedside. At this time they would like to make the patient comfort measures only. Plans for compassionate extubation with IV morphine and IV Ativan. All findings discussed with the patient's family. Questions answered. Critical care time spent with patient discussing and formulating plan of care: 90 minutes. This does not include time spent performing procedures. This medical document was created using an electronic medical record system with [employer] dictation system. Although this document has been carefully reviewed, there may still be some phonetic and typographical errors. These areas are purely typographical due to imperfections of the software programs, and do not reflect any compromise in the patient's medical care. Plan discussed with: Patient, Other (RN) My Orders Orders - SHIRA CRUZ NP Procedure Category Date Status Time * Cardiology Consult CONS 01/04/25 Transmitted 09:38 Morphine Sulfate PHA 01/04/25 Transmitted Injection 10:00 Lorazepam 2mg/Ml Inj PHA 01/04/25 Transmitted (Ativan Inj) 10:00 Rt To Terminal Wean Pt ORDERS 01/04/25 Transmitted 09:47 Communication Order ORDERS 01/04/25 Transmitted 09:47 Date of Service: Jan 04, 2025 Billing Provider: SHIRA CRUZ NP Common Visit Codes: [id number] CARE 30-74 MIN, [id number] CARE-EACH +30MIN SHIRA CRUZ NP Jan 04, 2025 09:54
[2025-01-04] MEDS ORDERED: ATORVASTATIN 20 MG TAB PO SCH (10:00)
[2025-01-04] MEDS ORDERED: cefTRIAXone 1GM/50ML D5W 50 ML IV SCH (10:00)
[2025-01-04] MEDS ORDERED: CEFEPIME 1GM/ 50ML 50 ML IV SCH (10:00)
[2025-01-04] MEDS ORDERED: APIXABAN 5 MG TAB PO SCH (10:00)
[2025-01-04] MEDS ORDERED: PANTOPRAZOLE 40 MG/10 ML VIAL INJ IV SCH (10:00)
[2025-01-04] MEDS ORDERED: METOPROLOL SUCCINATE XL 50 MG TAB PO SCH (10:00)
[2025-01-04] MEDS: fentaNYL Drip 2500mCg/250mlNS 250 ML IV SCH (10:12)
[2025-01-04] MEDS: MORPHINE SULFATE INJ 2 MG/ml SYRG IV PRN (13:12)
--- NOTE | 2025-01-04 13:47 | DVHPN2 ---
Progress Note - Dictate Date Seen: Jan 04, 2025 Medical Necessity Reason Pt with a Central, PICC or Fol: Yes The following are medically ne: Central Line vital signs Vital Sign Date Time Temp Pulse Resp B/P (MAP) Pulse Ox O2 Delivery O2 Flow Rate FiO2 01/04/25 13:12 106 20 123/100 01/04/25 12:00 88 Nasal Cannula* 2 28 01/04/25 11:45 96.6 205.9 Total Intake and Output 01/03/25 01/03/25 01/04/25 15:00 23:00 07:00 Intake Total 4064.98 ml Output Total 500 ml Balance 3564.98 ml medications Current Medications Medications Dose Ordered Sig/Enrique Route Start Time Stop Time Status Last Admin Dose Admin Enoxaparin Sodium 60 mg BID SC 01/04/25 04:30 01/04/25 04:35 Cancel Morphine Sulfate 1 mg Q1HP PRN IV 01/04/25 10:00 01/04/25 13:12 1 MG Lorazepam 1 mg Q1HP PRN IV 01/04/25 10:00 laboratory and microbiology Laboratory Tests 01/04/25 05:30 Test 01/04/25 05:30 Range/Units Serum Glucose 146 H 74-106 mg/dL Assessment/Plan [employer] rounds Impression Acute hypoxemic respiratory failure S/p cardiac arrest Lactic acidosis JEMMA Patient seen and examined in ICU Events On mechanical ventilation S/p cardiac arrest PEEP 5, FiO2 30% On multiple pressors for hemodynamic support Family at the bedside, contemplating compassionate wean Blood cultures growing gram positive cocci in clusters Labs and imaging reviewed Chest x-ray shows infiltrates at the bases, ? aspiration White count markedly elevated ABG reviewed pH 6.8, pCO2 35, pO2 108 Management Vent support Titrate to maintain sats 90% or above Sedation for vent synchrony Antibiotics F/u cultures Bronchodilators Monitor renal function F/u nephrology, management deferred Monitor electrolytes Supplement as needed Pressors as needed for hemodynamic support To maintain a mean arterial pressure of 65 mmHg F/u cardiology Family contemplating comfort measures Awaiting additional family to the besdide DVT prophylaxis Critical care time 35 minutes Plan discussed with: Other (Rn) KYLE ABREU MD Jan 04, 2025 13:47
[2025-01-04] MEDS: LORazepam 2MG/ML-1ML VIAL IV PRN (15:07)
[2025-01-05] VITALS (65 sets, daily range): BP systolic 65–121; BP diastolic 31–63; PULSE 102–151; RESP 32–45; TEMP 98.4–100.6; O2SAT 83–95
--- NOTE | 2025-01-05 10:00 | DVHPN2 ---
Subjective Nonresponsive Reviewed: Care Plan, H&P, Labs, Medications Changes from previous H/P or p: No Changes General: Per HPI Eyes: No Pain, No Vision change, No Conjunctivae inflammation, No Eyelid inflammation, No Other, No Redness ENT: No Ear pain, No Ear discharge, No Nose pain, No Nose discharge, No Nose congestion, No Mouth pain, No Mouth swelling, No Throat pain, No Throat swelling, No Other Cardiovascular: No Chest Pain; Palpitations; No Orthopnea, No Paroxysmal Noc. Dyspnea, No Edema, No Lt Headedness, No Other Respiratory: No Cough, No Dry; Shortness of breath; No SOB with excertion, No Wheezing, No Hemoptysis, No Pleuritic Pain, No Sputum, No Other Gastrointestinal: No Nausea, No Vomiting, No Abdominal Pain, No Diarrhea, No Constipation, No Melena, No Hematochezia, No Other Genitourinary: No Dysuria, No Frequency, No Incontinence, No Hematuria, No Retention, No Other Musculoskeletal: No other, No neck pain, No shoulder pain, No arm pain, No back pain, No hand pain, No leg pain, No foot pain Skin: No Rash, No Lesions, No Jaundice, No Bruising, No Other Objective Vitals Vital Signs Date Time Temp Pulse Resp B/P (MAP) Pulse Ox O2 Delivery O2 Flow Rate FiO2 01/05/25 09:44 124 36 92/36 01/05/25 08:00 92 Nasal Cannula* 2 28 01/05/25 06:45 99.5 211.1 Intake/Output Intake and Output 01/05/25 07:00 Intake Total 378.67 ml Output Total 1300 ml Balance -921.33 ml Intake Oral 0 ml IV Total 378.67 ml Output Urine Total 700 ml Stool Total 600 ml General Appearance: severe distress, Other (Chemically sedated) HEENT: PERRLA Lungs: Other (Mechanical ventilation) Cardiovascular: Other (Atrial fibrillation with rapid ventricular rate) Abdomen: Other (Colostomy) Genitourinary: No Apparent Abnormalities Skin: Dry, Intact Medications Current Medications Medications Dose Ordered Sig/Enrique Route Start Time Stop Time Status Last Admin Dose Admin Enoxaparin Sodium 60 mg BID SC 01/04/25 04:30 01/04/25 04:35 Cancel Morphine Sulfate 1 mg Q1HP PRN IV 01/04/25 10:00 01/05/25 09:44 1 MG Lorazepam 1 mg Q1HP PRN IV 01/04/25 10:00 01/05/25 09:43 1 MG Laboratory Results Laboratory Tests 01/04/25 05:30 Urinalysis Test 01/03/25 21:00 Urine Color Yellow (Yellow) Urine Clarity Clear (Clear) Urine pH 5.5 (5.0-9.0) Urine Specific [place] 1.021 (1.001-1.035) Urine Protein Trace (Negative) H Urine Ketones Negative (Negative) Urine Blood Negative /uL (Negative) Urine Nitrite Negative (Negative) Urine Bilirubin Negative (Negative) Urine Urobilinogen Normal mg/dL (Negative) Urine Leukocyte Esterase Negative /uL (Negative) Urine RBC 9 /hpf (0 - 3) Urine Microscopic WBC 4 /HPF (0-3) H Urine Squamous Epithelial Cells Few /hpf (<5) Urine Bacteria None seen /hpf (None Seen) Urine Mucus Few (None Seen) Urine Glucose Normal mg/dL (Normal) Microbiology Microbiology Date/Time Source Procedure Growth Status 01/03/25 21:31 Nose MRSA Screen - Final Methicillin Resistant S.aureus Complete 01/03/25 20:03 Blood Blood Culture - Preliminary Resulted Labs and/or images reviewed: Labs reviewed by me, Image(s) reviewed by me Assessment/Plan Assessment/Plan Impression: -acute hypoxic respiratory failure -NSTEMI, probably type 1 -history of CAD with CABG -acute kidney injury, vasomotor nephropathy -severe metabolic acidosis -lumbar spinal stenosis -severe sepsis with shock -probable aspiration pneumonia Plan: -Patient's son and from [facility] at bedside. Patient's medical conditions discussed as well as current plan of care including comfort care. At this time they are contemplating changing plan of care and do not wish to speak to other family members regarding medical decisions for the patient. Critical care time spent with patient discussing and formulating plan of care: 90 minutes. This does not include time spent performing procedures. This medical document was created using an electronic medical record system with [employer] dictation system. Although this document has been carefully reviewed, there may still be some phonetic and typographical errors. These areas are purely typographical due to imperfections of the software programs, and do not reflect any compromise in the patient's medical care. Plan discussed with: Patient, Other (RN) My Orders Orders - SHIRA CRUZ NP Procedure Category Date Status Time Mrsa Screen BARON 01/04/25 In Process 09:30 Date of Service: Jan 05, 2025 Billing Provider: SHIRA CRUZ NP Common Visit Codes: [id number] INP/OBS CARE(HIGH) SHIRA CRUZ NP Jan 05, 2025 10:00
[2025-01-06] VITALS (13 sets, daily range): BP systolic 101–120; BP diastolic 52–68; PULSE 74–151; RESP 31–44; TEMP 98.8–100; O2SAT 86–95
--- NOTE | 2025-01-06 09:34 | DVHPN2 ---
Subjective Nonresponsive Reviewed: Care Plan, H&P, Labs, Medications Changes from previous H/P or p: No Changes General: Per HPI Eyes: No Pain, No Vision change, No Conjunctivae inflammation, No Eyelid inflammation, No Other, No Redness ENT: No Ear pain, No Ear discharge, No Nose pain, No Nose discharge, No Nose congestion, No Mouth pain, No Mouth swelling, No Throat pain, No Throat swelling, No Other Cardiovascular: No Chest Pain; Palpitations; No Orthopnea, No Paroxysmal Noc. Dyspnea, No Edema, No Lt Headedness, No Other Respiratory: No Cough, No Dry; Shortness of breath; No SOB with excertion, No Wheezing, No Hemoptysis, No Pleuritic Pain, No Sputum, No Other Gastrointestinal: No Nausea, No Vomiting, No Abdominal Pain, No Diarrhea, No Constipation, No Melena, No Hematochezia, No Other Genitourinary: No Dysuria, No Frequency, No Incontinence, No Hematuria, No Retention, No Other Musculoskeletal: No other, No neck pain, No shoulder pain, No arm pain, No back pain, No hand pain, No leg pain, No foot pain Skin: No Rash, No Lesions, No Jaundice, No Bruising, No Other Objective Vitals Vital Signs Date Time Temp Pulse Resp B/P (MAP) Pulse Ox O2 Delivery O2 Flow Rate FiO2 01/06/25 08:34 128 36 105/63 01/06/25 06:00 99.1 93 210.4 01/06/25 06:00 Nasal Cannula* 2 28 Intake/Output Intake and Output 01/06/25 07:00 Output Total 1375 ml Balance -1375 ml Output Urine Total 775 ml Stool Total 600 ml General Appearance: severe distress, Other (Chemically sedated) HEENT: PERRLA Lungs: Other (Mechanical ventilation) Cardiovascular: Other (Atrial fibrillation with rapid ventricular rate) Abdomen: Other (Colostomy) Genitourinary: No Apparent Abnormalities Skin: Dry, Intact Medications Current Medications Medications Dose Ordered Sig/Enrique Route Start Time Stop Time Status Last Admin Dose Admin Enoxaparin Sodium 60 mg BID SC 01/04/25 04:30 01/04/25 04:35 Cancel Morphine Sulfate 1 mg Q1HP PRN IV 01/04/25 10:00 01/06/25 08:34 1 MG Lorazepam 1 mg Q1HP PRN IV 01/04/25 10:00 01/06/25 08:29 1 MG Laboratory Results Laboratory Tests 01/04/25 05:30 Urinalysis Test 01/03/25 21:00 Urine Color Yellow (Yellow) Urine Clarity Clear (Clear) Urine pH 5.5 (5.0-9.0) Urine Specific [place] 1.021 (1.001-1.035) Urine Protein Trace (Negative) H Urine Ketones Negative (Negative) Urine Blood Negative /uL (Negative) Urine Nitrite Negative (Negative) Urine Bilirubin Negative (Negative) Urine Urobilinogen Normal mg/dL (Negative) Urine Leukocyte Esterase Negative /uL (Negative) Urine RBC 9 /hpf (0 - 3) Urine Microscopic WBC 4 /HPF (0-3) H Urine Squamous Epithelial Cells Few /hpf (<5) Urine Bacteria None seen /hpf (None Seen) Urine Mucus Few (None Seen) Urine Glucose Normal mg/dL (Normal) Microbiology Microbiology Date/Time Source Procedure Growth Status 01/04/25 09:38 Nose MRSA Screen - Final Methicillin Resistant S.aureus Complete 01/04/25 03:15 Sputum Gram Stain - Final Resulted 01/04/25 03:15 Sputum Respiratory Culture - Preliminary Resulted 01/03/25 20:03 Blood Blood Culture - Preliminary Resulted Labs and/or images reviewed: Labs reviewed by me, Image(s) reviewed by me Assessment/Plan Assessment/Plan Impression: -acute hypoxic respiratory failure -NSTEMI, probably type 1 -history of CAD with CABG -acute kidney injury, vasomotor nephropathy -severe metabolic acidosis -lumbar spinal stenosis -severe sepsis with shock -probable aspiration pneumonia Plan: -patient continues to be in AFib with RVR. Blood pressure within normal limits. Continues to be obtunded. Patient downgraded to Medical/Surgical unit. We will reassess and discuss possible hospice placement. Total time spent with patient discussing and formulating plan of care: 35 minutes. Total time spent with patient and family regarding advance care plannin minutes. This medical document was created using an electronic medical record system with [employer] system. Although this document has been carefully reviewed, there may still be some phonetic and typographical errors. These areas are purely typographical due to imperfections of the software programs, and do not reflect any compromise in the patient's medical care. Plan discussed with: Patient, Son My Orders Orders - SALBINO,SILVA INK GRINDER Procedure Category Date Status Time Transfer Orders XFER 01/05/25 Transmitted 16:42 Date of Service: Jan 06, 2025 Billing Provider: SHIRA CRUZ NP Common Visit Codes: [id number] INP/OBS CARE(HIGH) SHIRA CRUZ NP Jan 06, 2025 09:34
[2025-01-07 00:35] VITALS: BP 105/80; PULSE 121; RESP 30; TEMP 97.4; O2SAT 91
[2025-01-07 05:00] VITALS: BP 127/64; PULSE 116; RESP 34; TEMP 98.3; O2SAT 95
[2025-01-07 09:00] VITALS: BP 114/74; PULSE 129; RESP 20; TEMP 99.8; O2SAT 92
--- NOTE | 2025-01-07 10:00 | DVHPN2 ---
Subjective Nonresponsive Reviewed: Care Plan, H&P, Labs, Medications Changes from previous H/P or p: No Changes General: Per HPI Eyes: No Pain, No Vision change, No Conjunctivae inflammation, No Eyelid inflammation, No Other, No Redness ENT: No Ear pain, No Ear discharge, No Nose pain, No Nose discharge, No Nose congestion, No Mouth pain, No Mouth swelling, No Throat pain, No Throat swelling, No Other Cardiovascular: No Chest Pain; Palpitations; No Orthopnea, No Paroxysmal Noc. Dyspnea, No Edema, No Lt Headedness, No Other Respiratory: No Cough, No Dry; Shortness of breath; No SOB with excertion, No Wheezing, No Hemoptysis, No Pleuritic Pain, No Sputum, No Other Gastrointestinal: No Nausea, No Vomiting, No Abdominal Pain, No Diarrhea, No Constipation, No Melena, No Hematochezia, No Other Genitourinary: No Dysuria, No Frequency, No Incontinence, No Hematuria, No Retention, No Other Musculoskeletal: No other, No neck pain, No shoulder pain, No arm pain, No back pain, No hand pain, No leg pain, No foot pain Skin: No Rash, No Lesions, No Jaundice, No Bruising, No Other Objective Vitals Vital Signs Date Time Temp Pulse Resp B/P (MAP) Pulse Ox O2 Delivery O2 Flow Rate FiO2 01/07/25 09:00 99.8 129 20 114/74 (87) 92 99.8 01/06/25 20:00 Nasal Cannula* 3 32 Intake/Output Intake and Output 01/07/25 07:00 Intake Total 0 ml Output Total 350 ml Balance -350 ml Intake Oral 0 ml Output Urine Total 350 ml General Appearance: severe distress, Other (Chemically sedated) HEENT: PERRLA Lungs: Other (Mechanical ventilation) Cardiovascular: Normal S1, Normal S2, Other (Atrial fibrillation with rapid ventricular rate) Abdomen: Other (Colostomy) Genitourinary: No Apparent Abnormalities Skin: Dry, Intact Psych/Mental Status: Other (unable to assess) Medications Current Medications Medications Dose Ordered Sig/Enrique Route Start Time Stop Time Status Last Admin Dose Admin Enoxaparin Sodium 60 mg BID SC 01/04/25 04:30 01/04/25 04:35 Cancel Morphine Sulfate 1 mg Q1HP PRN IV 01/04/25 10:00 01/07/25 06:46 1 MG Lorazepam 1 mg Q1HP PRN IV 01/04/25 10:00 01/07/25 06:45 1 MG Laboratory Results Laboratory Tests 01/04/25 05:30 Urinalysis Test 01/03/25 21:00 Urine Color Yellow (Yellow) Urine Clarity Clear (Clear) Urine pH 5.5 (5.0-9.0) Urine Specific [place] 1.021 (1.001-1.035) Urine Protein Trace (Negative) H Urine Ketones Negative (Negative) Urine Blood Negative /uL (Negative) Urine Nitrite Negative (Negative) Urine Bilirubin Negative (Negative) Urine Urobilinogen Normal mg/dL (Negative) Urine Leukocyte Esterase Negative /uL (Negative) Urine RBC 9 /hpf (0 - 3) Urine Microscopic WBC 4 /HPF (0-3) H Urine Squamous Epithelial Cells Few /hpf (<5) Urine Bacteria None seen /hpf (None Seen) Urine Mucus Few (None Seen) Urine Glucose Normal mg/dL (Normal) Microbiology Microbiology Date/Time Source Procedure Growth Status 01/04/25 09:38 Nose MRSA Screen - Final Methicillin Resistant S.aureus Complete 01/04/25 03:15 Sputum Gram Stain - Final Complete 01/04/25 03:15 Respiratory Culture - Final Methicillin Resistant S.aureus Complete 01/03/25 20:03 Blood Blood Culture - Final Staphylococcus aureus Complete Labs and/or images reviewed: Labs reviewed by me, Image(s) reviewed by me Assessment/Plan Assessment/Plan Impression: -acute hypoxic respiratory failure -NSTEMI, probably type 1 -history of CAD with CABG -acute kidney injury, vasomotor nephropathy -severe metabolic acidosis -lumbar spinal stenosis -severe sepsis with shock -probable aspiration pneumonia Plan: -patient continues to be in AFib with RVR. Blood pressure within normal limits. Continues to be obtunded. Patient downgraded to Medical/Surgical unit. Discussed Hospice. Family currently discussing. Total time spent with patient discussing and formulating plan of care: 35 minutes. This medical document was created using an electronic medical record system with [employer] system. Although this document has been carefully reviewed, there may still be some phonetic and typographical errors. These areas are purely typographical due to imperfections of the software programs, and do not reflect any compromise in the patient's medical care. Plan discussed with: Patient, Other (RN) My Orders Orders - SHIRA CRUZ NP Procedure Category Date Status Time * Wound Consult CONS 01/06/25 Transmitted * Logistics Manager CONS 01/06/25 Transmitted Consult Date of Service: Jan 07, 2025 Billing Provider: SHIRA CRUZ NP Common Visit Codes: [id number] INP/OBS CARE(HIGH) SHIRA CRUZ NP Jan 07, 2025 10:00
[2025-01-07 12:50] VITALS: BP 127/71; PULSE 124; RESP 21; TEMP 101.4; O2SAT 89
--- NOTE | 2025-01-07 14:19 | ECG ---
[facility] Test Date: 2025-01-03 Test Time: 18:36:58 Pat Name: SHITAL LYNN Department: ED Room: 0202T A Gender: M Drag Seiner: RUBIO : 1940 Requested By: SAKINA VALLEJO Order Number: [id number] Reading MD: Measurements Intervals [place] Rate: 137 P: 0 NM: 0 QRS: 83 QRSD: 156 T: -84 QT: 356 QTc: 538 Interpretive Statements Afib/flut and V-paced complexes No further rhythm analysis attempted due to paced rhythm IVCD, consider atypical LBBB Please click the below link to view image of tracing.
[2025-01-07 16:47] VITALS: BP 120/64; PULSE 129; RESP 22; TEMP 100.7; O2SAT 90
[2025-01-07 21:00] VITALS: BP 119/69; PULSE 125; RESP 14; TEMP 100.3; O2SAT 95
[2025-01-08 01:00] VITALS: BP 132/67; PULSE 121; RESP 16; TEMP 97.6; O2SAT 95
[2025-01-08 05:00] VITALS: BP 108/71; PULSE 113; RESP 16; TEMP 97.7; O2SAT 97
[2025-01-08 08:54] VITALS: BP 140/70; PULSE 111; RESP 33; TEMP 97.5; O2SAT 96
--- NOTE | 2025-01-08 09:43 | DVHDS2 ---
Discharge Summary Date of Admission Jan 03, 2025 at 20:49 Date of Discharge: Jan 08, 2025 Admitting Diagnosis Acute metabolic encephalopathy Labs/Diagnostic Data: Laboratory Results Test 01/04/25 08:10 01/04/25 05:30 01/04/25 03:20 01/03/25 23:50 Lactic Acid Level 8.5 mmol/L (0.4-2.0) Troponin I High Sensitivity 6240 ng/L (</=54) White Blood Count 36.6 10^3/uL (4.4-10.8) Red Blood Count 3.86 10^6/uL (4.5-5.90) Hemoglobin 10.1 g/dL (13.5-17.5) Hematocrit 32.9 % (41.0-53.0) Mean Corpuscular Volume 85.0 fL (80.0-100.0) Mean Corpuscular Hemoglobin 26.1 pg (28.0-32.0) Mean Corpuscular Hemoglobin Concent 30.7 g/dL (32.0-36.0) Red Cell Distribution Width 15.5 % (11.8-14.3) Platelet Count 496 10^3/uL (140-450) Mean Platelet Volume 7.1 fL (6.9-10.8) Neutrophils (%) (Auto) % (37.0-80.0) Lymphocytes (%) (Auto) % (10.0-50.0) Monocytes (%) (Auto) % (0.0-12.0) Basophils (%) (Auto) % (0.0-2.0) Neutrophils # (Auto) 10 ^3/uL (1.6-8.6) Lymphocytes # (Auto) 10 ^3/uL (0.4-5.4) Monocytes # (Auto) 10 ^3/uL (0-1.3) Differential Total Cells Counted 100.0 (100) Neutrophils % (Manual) 84 (37.0-80.0) Band Neutrophils % (Manual) 11 Lymphocytes % (Manual) 1 (10.0-50.0) Monocytes % (Manual) 4 (0-12) Eosinophils % (Manual) 0 (0-7) Basophils % (Manual) 0 (0.0-2.0) Metamyelocytes % (manual) 0 Myelocytes % (Manual) 0 Promyelocytes % (Manual) 0 Blast Cells % (Manual) 0 Reactive Lymphocytes 0 Platelet Estimate Increased Anisocytosis (manual) Slight Ovalocytes Few Prothrombin Time 20.0 sec (9.3-11.8) Prothrombin Time INR 2.02 (0.9-1.15) Activated Partial Thromboplast Time 43.3 SEC (24.5-34.5) D-Dimer, Quantitative 3.68 mg/L FEU (0.0-0.49) Sodium Level 138 mmol/L (136-145) Potassium Level 4.2 mmol/L (3.5-5.1) Chloride Level 105 mmol/L (98-107) Carbon Dioxide Level 12 mmol/L (20-31) Anion Gap 21 (5-15) Blood Urea Nitrogen 23 mg/dL (9-23) Creatinine 1.40 mg/dL (0.700-1.30) Glomerular Filtration Rate Calc 50 mL/min (>90) BUN/Creatinine Ratio 16.4 (10.0-20.0) Serum Glucose 146 mg/dL (74-106) Calcium Level 7.6 mg/dL (8.7-10.4) Ammonia 29 umol/L (11-32) Thyroid Stimulating Hormone (TSH) 1.01 uIU/mL (0.55-4.78) Blood Gas Specimen Type Arterial Blood Gas Sample Site Left radial Blood Gas Patient Temperature 37.0 Arterial Blood Date Drawn [id number] Arterial Blood pH 6.878 (7.350-7.450) Arterial Blood Partial Pressure CO2 35.1 mmHg (35.0-48.0) Arterial Blood Partial Pressure O2 108.8 mmHg (83.0-108.0) Arterial Blood HCO3 6.4 mmol/L (21.0-28.0) Arterial Blood Oxygen Saturation 91.7 % (94.0-98.0) Arterial Blood Base Excess -26.0 mmol/L (-2.0-3.0) Arterial Blood Oxyhemoglobin 91.2 % (94.0-98.0) Arterial Blood Carboxyhemoglobin 0.0 % (0.5-1.5) Arterial Blood Methemoglobin 0.5 % (0.0-1.5) Sanjay Test Modified Blood Gas Total Hemoglobin 11.60 g/dL (13.5-17.5) Blood Gas Set Respiration Rate 16.0 Blood Gas Modality Vent - ac FiO2 % 100.0 Blood Gas Tidal Volume 500.0 Blood Gas PEEP or CPAP 5.0 Blood Gas Critical Value Read Back Yes Blood Gas Notified Whom khadra Rebollar Blood Gas Notified Time [id number] Blood Gas Notified By Susy hernandez rrt Blood Gas Liter Flow 6.00 Test 01/03/25 21:31 01/03/25 21:00 01/03/25 20:03 Influenza Type A Antigen Negative (Negative) Influenza Type B Antigen Negative (Negative) SARS-CoV-2 Antigen (Rapid) Negative (NEGATIVE) Urine Color Yellow (Yellow) Urine Clarity Clear (Clear) Urine pH 5.5 (5.0-9.0) Urine Specific Zamora 1.021 (1.001-1.035) Urine Protein Trace (Negative) Urine Ketones Negative (Negative) Urine Blood Negative /uL (Negative) Urine Nitrite Negative (Negative) Urine Bilirubin Negative (Negative) Urine Urobilinogen Normal mg/dL (Negative) Urine Leukocyte Esterase Negative /uL (Negative) Urine RBC 9 /hpf (0 - 3) Urine Microscopic WBC 4 /HPF (0-3) Urine Squamous Epithelial Cells Few /hpf (<5) Urine Bacteria None seen /hpf (None Seen) Urine Mucus Few (None Seen) Urine Glucose Normal mg/dL (Normal) Urine Opiates Screen Neg (NEGATIVE) Urine Fentanyl Screen Neg (NEGATIVE) Urine Barbiturates Screen Neg (NEGATIVE) Urine Phencyclidine Screen Neg (NEGATIVE) Urine Amphetamines Screen Neg (NEGATIVE) Urine Benzodiazepines Screen Neg (NEGATIVE) Urine Cocaine Screen Neg (NEGATIVE) Urine Cannabinoids Screen Neg (NEGATIVE) Eosinophils (%) (Auto) 0.1 % (0.0-7.0) Eosinophils # (Auto) 0 10 ^3/uL (0-0.8) Basophils # (Auto) 0 10 ^3/uL (0-0.2) Nucleated Red Blood Cells 0.0 % Magnesium Level 2.1 mg/dL (1.6-2.6) Total Bilirubin 0.6 mg/dL (0.2-1.0) Aspartate Amino Transferase (AST) 42 U/L (13-40) Alanine Aminotransferase (ALT) 15 U/L (7-40) Alkaline Phosphatase 131 U/L (46-116) B-Type Natriuretic Peptide 104.25 pg/mL (0-100) Total Protein 8.3 g/dL (5.7-8.2) Albumin 4.3 g/dL (3.2-4.8) Lipase 21 U/L (12-53) Plasma/Serum Blood Alcohol 3.1 mg/dL (<10) Other Laboratory Tests 01/04/25 05:30 Brief Hx & Hospital Course: History of Present Illness This is a 84-year-old male with a past medical history of hypertension, CAD, status post pacemaker, status post CABG, hyperlipidemia, atrial fibrillation, colon cancer, s/p parial colectomy with colostomy bag in situ, chronic back pain presented to the ED via EMS from [facility] with a complaint of altered level of consciousness since morning prior to this admission. The patient is A&O X1, treated, confused normal severely dehydrated not able to give the history. History obtained from the EMS and mentioned according to the staff of the [facility] the patient become more confused and mumbling than the normal that prompted this visit. On admission the patient is septic, tachypneic, tachycardic, elevated WBC and lactic acid and severely dehydrated. Patient is on AFib with RVR likely due to sepsis. After admission patient was given 2 L IV bolus and started IV antibiotic vancomycin as per pharmacy and IV ceftriaxone 1 g daily. 2 L IV bolus patient heart rate disease going up to 167 to 170s and the patient was feeling uncomfortable, more confused. Started IV amiodarone as per protocol and transfer the patient to [facility]. Patient is admitted for further evaluation and management of sepsis. Course of hospitalization: Patient was placed on mechanical ventilation, IV amiodarone for AFib with RVR, vasopressor therapy, empiric antibiotic therapy. Long discussion was made with the patient's son, Smooth, and patient's sister at bedside. They requested for patient to be made comfort measures only, with the patient's subsequently being taken off mechanical ventilation as well as placed on IV morphine and IV Ativan. Patient was downgraded to the medical/surgical floor. Patient has remained hemodynamically stable, although unresponsive at this time. Patient will be discharged to his previous custodial facility under hospice services. Physical examination General: Alert and Oriented x3. No acute distress. Well-nourished. Eyes: EOMI. Anicteric. HENT: Moist mucous membranes. Lungs: Clear to auscultation bilaterally. No accessory muscle use. Cardiovascular: Regular rate and rhythm. No murmur. No JVD. Abdomen: Soft, non-tender and non-distended. No palpable masses. Extremities: No edema. Non-tender. Skin: No rashes or lesions. Warm. Neurologic: No focal neurological deficits. CN II-XII grossly intact, but not individually tested. Psychiatric: Cooperative. Appropriate mood and affect. Total time spent with patient discussing and formulating plan of care: 35 minutes. This medical document was created using an electronic medical record system with [employer] dictation system. Although this document has been carefully reviewed, there may still be some phonetic and typographical errors. These areas are purely typographical due to imperfections of the software programs, and do not reflect any compromise in the patient's medical care. Condition at Discharge: Poor Final Diagnosis/Problems List Septic shock Secondary diagnosis: -acute hypoxic respiratory failure -NSTEMI, probably type 1 -history of CAD with CABG -acute kidney injury, vasomotor nephropathy -severe metabolic acidosis -lumbar spinal stenosis -severe sepsis with shock -probable aspiration pneumonia Discharge Disposition: Hospice- Medical Facility Discharge Instruct/Medications Diet: See Comment Diet comment: Regular diet Follow Up/Referral: Per accepting provider Medications: Per accepting provider Scheduled Amlodipine Besylate (Amlodipine Besylate), 1 TAB PO DAILY, (Reported) Apixaban Base (Eliquis), 1 TAB PO BID, (Reported) Atorvastatin Calcium (Atorvastatin Calcium), 1 TAB PO DAILY, (Reported) Metoprolol Succinate (Metoprolol Succinate Er), 1 TAB PO DAILY, (Reported) Venlafaxine Hydrochloride (Venlafaxine Hydrochloride), 1 TAB PO DAILY, (Reported) 36 Discharge Statement: "Patient was advised to return to the ER or call 911 if any headaches, dizziness, shortness of breath, chest pain, abdominal pain, bleeding, fevers, or worsening of medical condition. Patient was counseled about treatment plan, medications, possible side effects, patientverbalized understanding. All questions were answered to the best of my ability. This discharge took greater then 30 minutes in planning, reviewing documentation, counseling the patient, and discussing with other team members." ASSESSMENT ASSESSMENT Assessment Date of Service: Jan 08, 2025 Billing Provider: SHIRA CRUZ NP Common Visit Codes: 91144-IBP/OBS DISCH DAY >30min SHIRA CRUZ NP Jan 08, 2025 09:42
[2025-01-08 12:08] VITALS: BP 148/112; PULSE 115; RESP 39
== END 2025-01-08 13:48 | disposition hospice, home (50) | DRG 871 ==
LOC: ER 18:44 → EDBD 18:44 → OVERFLOW 20:49 → ICU WEST 01-04 08:49 → TELE-CENTR 01-06 11:27 → CENTRAL 01-07 21:07
PROVIDERS: ADMIT Nurse Practitioner Acute Care; ATTEND Nurse Practitioner Acute Care
PROC: 02H633Z Insertion of Infusion Device into Right Atrium, Percutaneous Approach (ICD-10-PCS; principal; 2025-01-04)
PROC: B548ZZA Ultrasonography of Superior Vena Cava, Guidance (ICD-10-PCS; 2025-01-04)
PROC: 0BH18EZ Insertion of Endotracheal Airway into Trachea, Via Natural or Artificial Opening Endoscopic (ICD-10-PCS; 2025-01-04)
PROC: 5A1935Z Respiratory Ventilation, Less than 24 Consecutive Hours (ICD-10-PCS; 2025-01-04)
DX: A41.9 Sepsis, unspecified organism (principal); G93.41 Metabolic encephalopathy; N17.0 Acute kidney failure with tubular necrosis; R65.21 Severe sepsis with septic shock; J96.01 Acute respiratory failure with hypoxia; I21.4 Non-ST elevation (NSTEMI) myocardial infarction; J69.0 Pneumonitis due to inhalation of food and vomit; J18.9 Pneumonia, unspecified organism; E87.20 Acidosis, unspecified; E87.1 Hypo-osmolality and hyponatremia; D68.69 Other thrombophilia; I10 Essential (primary) hypertension; M48.061 Spinal stenosis, lumbar region without neurogenic claudication; G89.29 Other chronic pain; I25.10 Atherosclerotic heart disease of native coronary artery without angina pectoris; F17.200 Nicotine dependence, unspecified, uncomplicated; E78.5 Hyperlipidemia, unspecified; I48.0 Paroxysmal atrial fibrillation; E86.0 Dehydration; Z95.1 Presence of aortocoronary bypass graft; Z95.0 Presence of cardiac pacemaker; Z93.3 Colostomy status; Z86.74 Personal history of sudden cardiac arrest; Z85.038 Personal history of other malignant neoplasm of large intestine; Z51.5 Encounter for palliative care; Z88.8 Allergy status to other drugs, medicaments and biological substances; Z90.49 Acquired absence of other specified parts of digestive tract
CPT/HCPCS: 31500; 36415; 36600; 70450; 71045; 80048; 80053; 80307; 80320; 81001; 82140; 82805; 83605; 83690; 83735; 83880; 84443; 84484; 85007; 85025; 85027; 85379; 85610; 85730; 87040; 87070; 87077; 87081; 87186; 87205; 87426; 87804; 93005; 94002; 94003; 94640; 99291; G0378; J0330